=== PATIENT | male | born 1970 | race African-American/Black ===

== ENCOUNTER 2019-03-09 19:43 | Inpatient (IN) | payer MEDICAID, OTHER ==
[~2019-03-09] VITALS: Ht 182.9 cm; Wt 76.3 kg
[~2019-03-09 19:43] MED LIST: METF500T17 PO
[2019-03-09] MEDS ORDERED: LISI-167 PO (19:46)
--- NOTE | 2019-03-09 19:54 | NUR ---
PATIENT PRESENTS TO ED TODAY FOR DIZZINESS, UPPER ABD PAIN, AND N/V, DENIES DIARRHEA. EMT AT BEDSIDE FOR EKG, NADN, AWAITING MD ORDERS, CALL LIGHT WITHIN REACH.
--- NOTE | 2019-03-09 20:23 | NUR ---
REPORT TO KELECHI SCHMID.
--- NOTE | 2019-03-09 20:26 | NUR ---
report received from dirk short.
[2019-03-09] MEDS ORDERED: ONDANSETRON ODT 4 MG ONE (20:45)
[2019-03-09] MEDS ORDERED: MECLIZINE CHEWABLE 25 MG TAB ONE (20:45)
--- NOTE | 2019-03-09 20:48 | NUR ---
PT AMB TO BR WITH STEADY GAIT.
[2019-03-09 20:52] LABS: BASOPHILS # (AUTO) 0.03 x10^3/uL (0-0.1); BASOPHILS % (AUTO) 0 % (0-1); EOSINOPHILS # (AUTO) 0.17 x10^3/uL (0-0.4); EOSINOPHILS % (AUTO) 2 % (1-7); LYMPHOCYTES # (AUTO) 2.04 x10^3/uL (1-3.4); LYMPHOCYTES % (AUTO) 29 % (22-44); MD NO; MEAN CORPUSCULAR HEMOGLOBIN 29.9 pg (27.5-34.5); MEAN CORPUSCULAR HGB CONC 32.8 g/dL (33.2-36.2); MEAN CORPUSCULAR VOLUME 91.1 fL (81-97); MEAN PLATELET VOLUME 7.9 fL (7.4-10.4); MONOCYTES # (AUTO) 0.45 x10^3/uL (0.2-0.8); MONOCYTES % (AUTO) 6 % (2-9); NEUTROPHILS # (AUTO) 4.43 x10^3/uL (1.8-6.8); NEUTROPHILS % (AUTO) 62 % (42-75); PLATELET COUNT 305 x10^3/uL (130-400); RED BLOOD COUNT 4.38 x10^6/uL (4.38-5.82); RED CELL DISTRIBUTION WIDTH 15.1 % (9.4-14.8)
--- NOTE | 2019-03-09 20:52 | NUR ---
PT MEDICATED PER EMAR. PT TOLERATED WELL.
[2019-03-09] MEDS ORDERED: MECLIZINE CHEWABLE 25 MG TAB PO ONE (21:00)
[2019-03-09] MEDS ORDERED: ONDANSETRON ODT 4 MG PO ONE (21:00)
[2019-03-09 21:02] LABS: MICROSCOPIC AUTO
[2019-03-09 21:05] LABS: CULTURE INDICATED? NO
[2019-03-09 21:05] LABS: ALANINE AMINOTRANSFERASE 37 U/L (12-78); ALBUMIN 3.4 g/dL (3.4-5.0); ANION GAP 11 mmol/L (5-15); CALCIUM 8.5 mg/dL (8.5-10.1); CHLORIDE 105 mmol/L (98-107); CREATININE 0.72 mg/dL (0.7-1.3)
[2019-03-09 21:09] LABS: ALKALINE PHOSPHATASE 61 U/L (45-117); BILIRUBIN,TOTAL 0.2 mg/dL (0.2-1.0); TOTAL PROTEIN 7.2 g/dL (6.4-8.2); TROPONIN I 0.018 ng/mL (0.000-0.045)
--- NOTE | 2019-03-09 21:56 | NUR ---
THIS RN TRIED TO DC PT. PT STATES " I FEEL DZY STILL. CAN I STAY ON THE BED FOR 30 MIN?" EDMD AND [employer] ENGINEER NOTIFIED. PT IS STILL RESTING IN [facility]. PT'S AOX4. RESPS EVEN AND UNLABORED.
--- NOTE | 2019-03-09 22:21 | NUR ---
PT IS NOT READY FOR DC. PT STILL RESTING IN [facility]. RESPS EVEN AND UNLABORED. PT'S AOX4.
--- NOTE | 2019-03-09 22:49 | NUR ---
PT IS NOT READY YET. PT RESTING IN [facility]. PT'S AOX4. RESPS EVEN AND UNLABORED. BP/SPO2 MONITORS IN PLACE. CALL LIGHT WITHIN REACH. WARM BLANCKET PROVIDED.
--- NOTE | 2019-03-09 23:11 | NUR ---
PT HAS N/D STILL. EDMD NOTIFIED.
[2019-03-09] MEDS ORDERED: DIAZEPAM 5 MG TABLET PO ONE (23:29)
[2019-03-09] MEDS ORDERED: ACETAMINOPHEN 325 MG TABLET PO PRN (23:30)
[2019-03-09] MEDS ORDERED: ONDANSETRON 2MG/ML, 2ML IVPush PRN (23:30)
[2019-03-09] MEDS ORDERED: MECLIZINE CHEWABLE 25 MG TAB PO PRN (23:30)
[2019-03-09] MEDS ORDERED: DIAZEPAM 5 MG TABLET PO PRN (23:30)
[2019-03-09] MEDS: SODIUM CHLORIDE FLUSH 10ML SYR IVF SCH (23:30)
[2019-03-09] MEDS ORDERED: POLYETHYLENE GLYCOL 17 GM PACKET PO PRN (23:30)
[2019-03-09] MEDS ORDERED: BISACODYL 10 MG SUPP PR PRN (23:30)
[2019-03-09] MEDS ORDERED: DIAZEPAM 5 MG TABLET ONE (23:35)
--- NOTE | 2019-03-09 23:39 | NUR ---
pt medicated per emar. pt tolerated well. pt's aox4. resps even and unlabored.
--- NOTE | 2019-03-09 23:40 | NUR ---
medication ordered from pharmacy.
[2019-03-09] MEDS: metFORMIN 500 MG TABLET PO SCH (23:53)
--- NOTE | 2019-03-09 23:54 | NUR ---
PT MEDICATED PER EMAR. PT TOLERATED WELL.
[2019-03-09 23:58] LABS: HEMOGLOBIN A1C 12.9 % (4.2-6.3)
--- NOTE | 2019-03-10 00:25 | NUR ---
REPORT GIVEN TO BURT LORENZ. ALL QUESTIONS ANSWERED.
[2019-03-10 00:51] VITALS: BP 147/91
[2019-03-10 01:01] VITALS: BP 147/91
[2019-03-10 07:39] VITALS: BP 163/96
[2019-03-10] MEDS: metFORMIN 500 MG TABLET PO SCH (08:05)
[2019-03-10] MEDS: SODIUM CHLORIDE FLUSH 10ML SYR IVF SCH ×2 (08:05→20:38)
[2019-03-10] MEDS ORDERED: LISINOPRIL 20 MG TABLET PO SCH (09:00)
[2019-03-10] MEDS ORDERED: GADOBUTROL 7.5 MMOL/7.5 ML PFS ONE (11:48)
[2019-03-10 13:15] VITALS: BP 149/85
[2019-03-10] MEDS ORDERED: INSULIN GLARGINE 100 UNITS/ML, PEN SQ-INSULIN SCH (15:30)
[2019-03-10] MEDS ORDERED: hydrALAzine 20 MG/ML, 1ML IV PRN (16:00)
[2019-03-10] MEDS: METOPROLOL TARTRATE 25 MG TABLET PO SCH (16:34)
[2019-03-10] MEDS: SODIUM CHLORIDE 0.9% 1,000 ML IV SCH ×2 (16:35→22:46)
[2019-03-10] MEDS: INSULIN LISPRO 100 UNITS/ML, PEN SQ-INSULIN SCH ×2 (16:36→20:38)
[2019-03-10 19:16] VITALS: BP 121/74
[2019-03-10] MEDS: LISINOPRIL 20 MG TABLET PO SCH (20:38)
[2019-03-11 01:50] VITALS: BP 118/71
[2019-03-11 05:38] LABS: ANION GAP 6 mmol/L (5-15); CALCIUM 8.4 mg/dL (8.5-10.1); CHLORIDE 107 mmol/L (98-107)
[2019-03-11 05:42] LABS: CHOL/HDL RATIO 1.3; CHOLESTEROL, TOTAL 113 mg/dL (140-239); CREATININE 0.59 mg/dL (0.7-1.3); HDL CHOL % 78 % (26-37); HDL CHOLESTEROL (DIRECT) 88 mg/dL (40-60); LDL CHOLESTEROL,CALCULATED 16 mg/dL (54-169); LDL/HDL RATIO 0.2 (0.5-3.0); TRIGLYCERIDES 45 mg/dL (50-200); VLDL CHOLESTEROL 9 mg/dL (0-25)
[2019-03-11] MEDS: METOPROLOL TARTRATE 25 MG TABLET PO SCH ×2 (05:44→17:16)
[2019-03-11] MEDS: SODIUM CHLORIDE 0.9% 1,000 ML IV SCH ×3 (05:45→23:06)
[2019-03-11 06:26] VITALS: BP 148/92
[2019-03-11] MEDS: INSULIN LISPRO 100 UNITS/ML, PEN SQ-INSULIN SCH ×4 (07:00→20:16)
[2019-03-11] MEDS: SODIUM CHLORIDE FLUSH 10ML SYR IVF SCH ×2 (07:44→20:17)
[2019-03-11] MEDS: LISINOPRIL 20 MG TABLET PO SCH ×2 (07:44→20:17)
[2019-03-11] MEDS: metFORMIN 500 MG TABLET PO SCH ×2 (13:01→20:17)
[2019-03-11 14:11] VITALS: BP 130/80
[2019-03-11 16:11] VITALS: BP 137/80
[2019-03-11 18:39] VITALS: BP 123/79
[2019-03-11] MEDS ORDERED: INSULIN GLARGINE 100 UNITS/ML, PEN SQ-INSULIN SCH (21:00)
[2019-03-12 03:30] VITALS: BP 125/79
[2019-03-12] MEDS: METOPROLOL TARTRATE 25 MG TABLET PO SCH (05:52)
[2019-03-12] MEDS: SODIUM CHLORIDE 0.9% 1,000 ML IV SCH (06:11)
[2019-03-12 06:41] VITALS: BP 134/86
[2019-03-12] MEDS: INSULIN LISPRO 100 UNITS/ML, PEN SQ-INSULIN SCH ×2 (07:00→11:57)
[2019-03-12] MEDS: metFORMIN 500 MG TABLET PO SCH (07:28)
[2019-03-12] MEDS: SODIUM CHLORIDE FLUSH 10ML SYR IVF SCH (07:28)
[2019-03-12] MEDS: LISINOPRIL 20 MG TABLET PO SCH (07:28)
[2019-03-12] MEDS ORDERED: INSU100I34 SQ (14:21)
[2019-03-12] MEDS ORDERED: LISI-170 PO (14:21)
[2019-03-12] MEDS ORDERED: METF500T PO (14:21)
[2019-03-12] MEDS ORDERED: METO25TA35 PO (14:21)
[2019-03-12 14:33] VITALS: BP 130/82
== END 2019-03-12 15:38 | disposition home or self-care (01) | DRG 638 ==
LOC: ED 22:50 → EDIP 23:15 → 3NE 03-10 00:45
PROVIDERS: ADMIT Family Medicine; ATTEND Family Medicine
DX: E11.65 Type 2 diabetes mellitus with hyperglycemia (principal); E87.2 Acidosis; E86.0 Dehydration; H81.10 Benign paroxysmal vertigo, unspecified ear; I10 Essential (primary) hypertension; Z79.899 Other long term (current) drug therapy; Z83.3 Family history of diabetes mellitus
CPT/HCPCS: 36415; 70553; 80048; 80053; 80061; 81001; 82962; 83036; 83605; 83735; 84484; 85025; 93005; 99285; A9585; G0378; Q0162; J1815; J7030

== ENCOUNTER 2020-04-15 09:05 | Inpatient (IN) | payer BC, OTHER ==
[~2020-04-15] VITALS: Ht 182.9 cm; Wt 88.0 kg
[~2020-04-15 09:05] MED LIST changes: +INSU100I34 SQ; +LISI-167 PO; +LISI-170 PO; +METF500T PO; +METO25TA35 PO
--- NOTE | 2020-04-15 09:47 | NUR ---
WEB OPERATIONS LEAD: PT TO ROOM FROM LOBBY
[2020-04-15] MEDS ORDERED: SODIUM CHLORIDE 0.9% 1,000ML IVBOLUS ONE (10:00)
[2020-04-15] MEDS ORDERED: AMPICILLIN/SULBACTAM 3 GM in SODIUM CHLORIDE 0.9% 100 ML IV ONE (10:00)
[2020-04-15 10:21] LABS: MEAN CORPUSCULAR HEMOGLOBIN 32.1 pg (27.5-34.5); MEAN CORPUSCULAR HGB CONC 33.1 g/dL (33.2-36.2); MEAN CORPUSCULAR VOLUME 97.1 fL (81-97); MEAN PLATELET VOLUME 7.7 fL (7.4-10.4); PLATELET COUNT 394 x10^3/uL (130-400); RED BLOOD COUNT 3.98 x10^6/uL (4.38-5.82); RED CELL DISTRIBUTION WIDTH 12.3 % (9.4-14.8)
--- NOTE | 2020-04-15 10:21 | NUR ---
PT CAME IN CO OF RIGHT GREAT TOE PAIN FROM A NON HEALING WOUND. PT DENIES SEEING WOUND CLINIC. PT STATES HE IS DIABETIC AND HIS SUGAR WAS OVER 500 THIS MORNING. THE WOUND ON HIS TOE HAS A FOUL ODOR AND HIS BIG TOE NAIL HAS FALLEN OFF. LABS DRAWN. PT CONNECTED TO MONITORING EQUIPMENT. IV FLUIDS INFUSING
[2020-04-15 10:34] LABS: ALBUMIN 2.8 g/dL (3.4-5.0); ANION GAP 7 mmol/L (5-15); CALCIUM 8.7 mg/dL (8.5-10.1); CHLORIDE 98 mmol/L (98-107); CREATININE 0.81 mg/dL (0.7-1.3)
--- NOTE | 2020-04-15 10:37 | NUR ---
PT RESTING IN [facility]. WATCHING TV. VSS. NAD.
[2020-04-15 10:46] LABS: BASOPHILS # (AUTO) 0.03 x10^3/uL (0-0.1); BASOPHILS % (AUTO) 0 % (0-1); EOSINOPHILS # (AUTO) 0.01 x10^3/uL (0-0.4); EOSINOPHILS % (AUTO) 0 % (1-7); LYMPHOCYTES # (AUTO) 1.31 x10^3/uL (1-3.4); LYMPHOCYTES % (AUTO) 10 % (22-44); MD SCAN; MONOCYTES # (AUTO) 0.48 x10^3/uL (0.2-0.8); MONOCYTES % (AUTO) 4 % (2-9); NEUTROPHILS % (AUTO) 86 % (42-75)
[2020-04-15 11:20] LABS: ACETONE, SERUM Negative (Negative)
[2020-04-15] MEDS ORDERED: POTASSIUM CHLORIDE 20 MEQ TAB.ER.PRT ONE (11:29)
[2020-04-15] MEDS ORDERED: NS + 40MEQ KCL 1,000 ML IV ONE (11:29)
[2020-04-15] MEDS ORDERED: POTASSIUM CHLORIDE 20 MEQ TAB.ER.PRT PO ONE (11:30)
[2020-04-15] MEDS ORDERED: NS + 40MEQ KCL 1,000 ML IV SCH (11:30)
[2020-04-15] MEDS ORDERED: VANCOMYCIN PER PHARMACY MC PRN ×2 (11:30→13:00)
--- NOTE | 2020-04-15 11:39 | NUR ---
PT EDUCATED ON PLAN OF CARE.
--- NOTE | 2020-04-15 11:45 | NUR ---
REPORT FROM KELECHI JIMENEZ. PT CARE RESPONSIBILITIES ASSUMED.
[2020-04-15] MEDS ORDERED: VANCOMYCIN 1,700 MG in SODIUM CHLORIDE 0.9% 250 ML IV ONE (12:00)
[2020-04-15 12:05] LABS: HCT (SEDRATE) 36.3 % (39.2-51.8)
[2020-04-15] MEDS ORDERED: POLYETHYLENE GLYCOL 17 GM PACKET PO PRN (12:30)
[2020-04-15] MEDS ORDERED: hydrALAzine 20 MG/ML, 1ML IVPush PRN (12:30)
[2020-04-15 12:33] VITALS: BP 160/99
[2020-04-15] MEDS ORDERED: MAGNESIUM SULFATE PMX 4GM/100M 100 ML IV ONE (13:00)
[2020-04-15] MEDS ORDERED: PHARMACOKINETIC CONSULTATION MC ONE (13:30)
[2020-04-15] MEDS ORDERED: PHARMACOKINETIC MONITORING MC PRN (13:30)
[2020-04-15] MEDS: AMPICILLIN/SULBACTAM 3 GM in SODIUM CHLORIDE 0.9% 100 ML IV SCH ×2 (14:23→21:37)
[2020-04-15] MEDS: NS + 20MEQ KCL 1,000 ML IV SCH (14:24)
[2020-04-15] MEDS: INSULIN LISPRO 100 UNITS/ML, PEN SQ-INSULIN SCH ×2 (15:50→21:00)
[2020-04-15 16:09] VITALS: BP 107/74
[2020-04-15] MEDS ORDERED: CHLORHEXIDINE 15 ML UDC ONE (17:33)
[2020-04-15 18:09] LABS: ANION GAP 7 mmol/L (5-15); CALCIUM 8.4 mg/dL (8.5-10.1); CHLORIDE 101 mmol/L (98-107)
[2020-04-15 18:10] LABS: CREATININE 0.64 mg/dL (0.7-1.3)
[2020-04-15] MEDS ORDERED: BUPIVACAINE/PF 0.5% ONE (18:35)
[2020-04-15 18:49] VITALS: BP 130/75
[2020-04-15] MEDS ORDERED: MIDAZOLAM 1 MG/ML, 2ML ONE (19:56)
[2020-04-15] MEDS ORDERED: ONDANSETRON 2MG/ML, 2ML ONE (19:56)
[2020-04-15] MEDS ORDERED: ROCURONIUM 10MG/ML,5ML ONE (19:56)
[2020-04-15] MEDS ORDERED: SUCCINYLCHOLINE 20 MG/ML, 10ML ONE (19:56)
[2020-04-15] MEDS ORDERED: SUGAMMADEX 200 MG/2 ML IVPush ONE (19:56)
[2020-04-15] MEDS ORDERED: PROPOFOL 10 MG/ML, 20ML ONE (19:56)
[2020-04-15] MEDS ORDERED: CEFAZOLIN 1,000 MG ONE (19:56)
[2020-04-15] MEDS ORDERED: FENTANYL PF 100 MCG/2ML IV PRN (20:30)
[2020-04-15] MEDS ORDERED: OXYcodone 5 MG/5 ML ORAL.SOL UDC PO PRN (20:30)
[2020-04-15] MEDS ORDERED: HYDROmorphone 1 MG/ML, 1ML INJ IV PRN (20:30)
[2020-04-15] MEDS ORDERED: MEPERIDINE/PF 25MG/0.5ML IVPush PRN (20:30)
[2020-04-15] MEDS ORDERED: ALBUTEROL SULFATE 2.5 MG/3 ML NPPB PRN (20:30)
[2020-04-15] MEDS ORDERED: METOCLOPRAMIDE 5 MG/ML, 2ML IV PRN (20:30)
[2020-04-15] MEDS ORDERED: hydrALAzine 20 MG/ML, 1ML IV PRN (20:30)
[2020-04-15] MEDS ORDERED: DIAZEPAM 5 MG/ML, 2ML IV PRN ×2 (20:30)
[2020-04-15] MEDS ORDERED: KETOROLAC 30 MG/1 ML IV PRN (20:30)
[2020-04-15] MEDS ORDERED: PROMETHAZINE 25 MG/ML, 1ML IV PRN (20:30)
[2020-04-15] MEDS ORDERED: LABETALOL 5MG/ML, 20ML IV PRN (20:30)
[2020-04-15] MEDS ORDERED: ONDANSETRON 2MG/ML, 2ML IVPush PRN (20:30)
[2020-04-15] MEDS ORDERED: INSULIN GLARGINE 100 UNITS/ML, PEN SQ-INSULIN SCH (21:00)
[2020-04-15] MEDS: metFORMIN 500 MG TABLET PO SCH (21:37)
[2020-04-15] MEDS: LISINOPRIL 20 MG TABLET PO SCH (21:37)
[2020-04-16] MEDS: VANCOMYCIN 1,300 MG in SODIUM CHLORIDE 0.9% 250 ML IV SCH ×3 (00:05→23:35)
[2020-04-16 01:02] VITALS: BP 135/79
[2020-04-16] MEDS: AMPICILLIN/SULBACTAM 3 GM in SODIUM CHLORIDE 0.9% 100 ML IV SCH ×4 (01:52→19:56)
[2020-04-16] MEDS: NS + 20MEQ KCL 1,000 ML IV SCH ×2 (04:09→17:57)
[2020-04-16] MEDS ORDERED: POTASSIUM CHLORIDE 20 MEQ TAB.ER.PRT PO ONE (06:00)
[2020-04-16 06:43] LABS: BASOPHILS # (AUTO) 0.02 x10^3/uL (0-0.1); BASOPHILS % (AUTO) 0 % (0-1); EOSINOPHILS # (AUTO) 0.04 x10^3/uL (0-0.4); EOSINOPHILS % (AUTO) 1 % (1-7); LYMPHOCYTES # (AUTO) 1.21 x10^3/uL (1-3.4); LYMPHOCYTES % (AUTO) 19 % (22-44); MD NO; MEAN CORPUSCULAR HGB CONC 33.4 g/dL (33.2-36.2); MEAN CORPUSCULAR VOLUME 95.8 fL (81-97); MEAN PLATELET VOLUME 7.5 fL (7.4-10.4); MONOCYTES # (AUTO) 0.61 x10^3/uL (0.2-0.8); MONOCYTES % (AUTO) 9 % (2-9); NEUTROPHILS # (AUTO) 4.63 x10^3/uL (1.8-6.8); NEUTROPHILS % (AUTO) 71 % (42-75); PLATELET COUNT 330 x10^3/uL (130-400); RED BLOOD COUNT 3.65 x10^6/uL (4.38-5.82); RED CELL DISTRIBUTION WIDTH 12.1 % (9.4-14.8)
[2020-04-16 07:14] LABS: ANION GAP 5 mmol/L (5-15); CALCIUM 7.6 mg/dL (8.5-10.1); CHLORIDE 103 mmol/L (98-107)
[2020-04-16 07:17] LABS: CREATININE 0.53 mg/dL (0.7-1.3)
[2020-04-16 07:46] VITALS: BP 127/83
[2020-04-16] MEDS: INSULIN LISPRO 100 UNITS/ML, PEN SQ-INSULIN SCH ×4 (08:04→21:00)
[2020-04-16] MEDS: LISINOPRIL 20 MG TABLET PO SCH ×2 (08:05→21:00)
[2020-04-16] MEDS: metFORMIN 500 MG TABLET PO SCH ×2 (08:05→21:40)
[2020-04-16] MEDS: MAGNESIUM CHLORIDE 64 MG TABLET.DR PO SCH ×2 (08:05→21:00)
[2020-04-16 13:39] VITALS: BP 137/85
[2020-04-16] MEDS ORDERED: MAGNESIUM SULFATE IV ONE (16:00)
[2020-04-16] MEDS ORDERED: SODIUM CHLORIDE 0.9% IV ONE (16:00)
[2020-04-16 19:35] VITALS: BP 134/80
[2020-04-16] MEDS ORDERED: INSULIN GLARGINE 100 UNITS/ML, PEN SQ-INSULIN SCH (21:00)
[2020-04-16] MEDS ORDERED: LISINOPRIL 10 MG TABLET ONE (21:38)
[2020-04-17 01:40] VITALS: BP 127/72
[2020-04-17] MEDS: AMPICILLIN/SULBACTAM 3 GM in SODIUM CHLORIDE 0.9% 100 ML IV SCH ×4 (01:48→19:39)
[2020-04-17 05:35] LABS: CHLORIDE 107 mmol/L (98-107)
[2020-04-17 05:37] LABS: ALBUMIN 2.1 g/dL (3.4-5.0); ANION GAP 3 mmol/L (5-15); CALCIUM 7.8 mg/dL (8.5-10.1)
[2020-04-17 05:52] LABS: BASOPHILS # (AUTO) 0.04 x10^3/uL (0-0.1); BASOPHILS % (AUTO) 0 % (0-1); EOSINOPHILS # (AUTO) 0.04 x10^3/uL (0-0.4); EOSINOPHILS % (AUTO) 0 % (1-7); LYMPHOCYTES # (AUTO) 1.96 x10^3/uL (1-3.4); LYMPHOCYTES % (AUTO) 20 % (22-44); MD NO; MEAN CORPUSCULAR HEMOGLOBIN 32.2 pg (27.5-34.5); MEAN CORPUSCULAR HGB CONC 33.1 g/dL (33.2-36.2); MEAN CORPUSCULAR VOLUME 97.4 fL (81-97); MEAN PLATELET VOLUME 7.7 fL (7.4-10.4); MONOCYTES # (AUTO) 1.31 x10^3/uL (0.2-0.8); MONOCYTES % (AUTO) 13 % (2-9); NEUTROPHILS # (AUTO) 6.49 x10^3/uL (1.8-6.8); NEUTROPHILS % (AUTO) 66 % (42-75); PLATELET COUNT 358 x10^3/uL (130-400); RED BLOOD COUNT 3.67 x10^6/uL (4.38-5.82); RED CELL DISTRIBUTION WIDTH 12.5 % (9.4-14.8)
[2020-04-17] MEDS ORDERED: POTASSIUM CHLORIDE 20 MEQ TAB.ER.PRT PO ONE (06:00)
[2020-04-17] MEDS: INSULIN LISPRO 100 UNITS/ML, PEN SQ-INSULIN SCH ×4 (07:00→19:55)
[2020-04-17] MEDS ORDERED: LISINOPRIL 10 MG TABLET ONE (07:36)
[2020-04-17] MEDS: metFORMIN 500 MG TABLET PO SCH ×2 (08:07→20:29)
[2020-04-17] MEDS: LISINOPRIL 20 MG TABLET PO SCH ×2 (08:07→20:29)
[2020-04-17] MEDS: POTASSIUM CHLORIDE 20 MEQ TAB.ER.PRT PO SCH ×2 (08:30→16:54)
[2020-04-17 09:01] VITALS: BP 138/90
[2020-04-17] MEDS: VANCOMYCIN 1,300 MG in SODIUM CHLORIDE 0.9% 250 ML IV SCH ×2 (11:27→23:36)
[2020-04-17] MEDS ORDERED: LINA5TAB PO (13:01)
[2020-04-17] MEDS: LINAGLIPTIN 5 MG TAB PO SCH (13:40)
[2020-04-17 14:30] VITALS: BP 137/85
[2020-04-17 18:59] VITALS: BP 152/91
[2020-04-17 20:28] VITALS: BP 151/92
[2020-04-18 01:23] VITALS: BP 140/78
[2020-04-18] MEDS: AMPICILLIN/SULBACTAM 3 GM in SODIUM CHLORIDE 0.9% 100 ML IV SCH (01:58)
[2020-04-18] MEDS: INSULIN LISPRO 100 UNITS/ML, PEN SQ-INSULIN SCH ×4 (07:00→16:21)
[2020-04-18 08:34] LABS: ANION GAP 4 mmol/L (5-15); CALCIUM 8.7 mg/dL (8.5-10.1); CHLORIDE 106 mmol/L (98-107); CREATININE 0.53 mg/dL (0.7-1.3)
[2020-04-18] MEDS: LISINOPRIL 20 MG TABLET PO SCH ×2 (09:00→23:58)
[2020-04-18 09:05] VITALS: BP 149/93
[2020-04-18] MEDS ORDERED: LISINOPRIL 10 MG TABLET ONE ×2 (10:08→22:44)
[2020-04-18] MEDS: LINEZOLID 600 MG TABLET PO SCH ×2 (10:11→23:58)
[2020-04-18] MEDS: SULFAMETH./TRIMETHOPRIM DS 800MG/160MG TABLET PO SCH ×2 (10:11→23:58)
[2020-04-18] MEDS: LINAGLIPTIN 5 MG TAB PO SCH (10:11)
[2020-04-18] MEDS: metFORMIN 500 MG TABLET PO SCH ×2 (10:12→23:58)
[2020-04-18] MEDS: ACETAMINOPHEN 325 MG TABLET PO PRN (10:44)
[2020-04-18] MEDS ORDERED: VANCOMYCIN 1,800 MG in SODIUM CHLORIDE 0.9% 250 ML IV SCH (11:30)
[2020-04-18 14:05] VITALS: BP 144/80
[2020-04-18 19:27] VITALS: BP 157/94
[2020-04-18 20:20] VITALS: BP 147/103
[2020-04-19] MEDS: INSULIN LISPRO 100 UNITS/ML, PEN SQ-INSULIN SCH ×3 (00:20→10:55)
[2020-04-19 02:26] VITALS: BP 162/92
[2020-04-19 06:43] LABS: ANION GAP 4 mmol/L (5-15); CALCIUM 8.6 mg/dL (8.5-10.1); CHLORIDE 106 mmol/L (98-107)
[2020-04-19] MEDS: ACETAMINOPHEN 325 MG TABLET PO PRN (07:00)
[2020-04-19] MEDS ORDERED: LISINOPRIL 10 MG TABLET ONE (08:43)
[2020-04-19] MEDS: metFORMIN 500 MG TABLET PO SCH (08:45)
[2020-04-19] MEDS: LISINOPRIL 20 MG TABLET PO SCH (08:45)
[2020-04-19] MEDS: SULFAMETH./TRIMETHOPRIM DS 800MG/160MG TABLET PO SCH (08:46)
[2020-04-19] MEDS: LINEZOLID 600 MG TABLET PO SCH (08:46)
[2020-04-19] MEDS: LINAGLIPTIN 5 MG TAB PO SCH (08:46)
[2020-04-19 08:59] VITALS: BP 157/97
[2020-04-19] MEDS ORDERED: MAGNESIUM CHLORIDE 64 MG TABLET.DR PO SCH (09:00)
[2020-04-19] MEDS ORDERED: HYDROcodone/APAP 5/325 TABLET PO PRN (10:00)
[2020-04-19] MEDS ORDERED: ENOXAPARIN 40 MG/0.4 ML SQ SCH (10:00)
[2020-04-19] MEDS ORDERED: LINE600T15 PO (10:53)
[2020-04-19] MEDS ORDERED: Sulfameth./Trimethoprim Ds PO (10:53)
[2020-04-19 13:31] VITALS: BP 155/95
== END 2020-04-19 15:06 | disposition home or self-care (01) | DRG 617 ==
LOC: ED 10:04 → EDIP 11:29 → 4EST 12:25 → 4WST 04-17 20:59 → 4NE 04-18 20:04 → DCLOUNGE 04-19 14:42
PROVIDERS: ADMIT Family Medicine; ATTEND Family Medicine
PROC: 0Y6P0Z0 Detachment at Right 1st Toe, Complete, Open Approach (ICD-10-PCS; principal; 2020-04-15 16:30)
DX: E11.621 Type 2 diabetes mellitus with foot ulcer (principal); E46 Unspecified protein-calorie malnutrition; M00.9 Pyogenic arthritis, unspecified; M86.8X7 Other osteomyelitis, ankle and foot; E11.649 Type 2 diabetes mellitus with hypoglycemia without coma; D64.9 Anemia, unspecified; E11.69 Type 2 diabetes mellitus with other specified complication; E11.65 Type 2 diabetes mellitus with hyperglycemia; E83.42 Hypomagnesemia; E87.6 Hypokalemia; S99.921A Unspecified injury of right foot, initial encounter; W22.8XXA Striking against or struck by other objects, initial encounter; Z20.828 Contact with and (suspected) exposure to other viral communicable diseases; F17.200 Nicotine dependence, unspecified, uncomplicated; I10 Essential (primary) hypertension; L03.039 Cellulitis of unspecified toe; L97.519 Non-pressure chronic ulcer of other part of right foot with unspecified severity; L97.529 Non-pressure chronic ulcer of other part of left foot with unspecified severity; Z68.26 Body mass index [BMI] 26.0-26.9, adult; Z79.84 Long term (current) use of oral hypoglycemic drugs; Z79.899 Other long term (current) drug therapy; Z82.0 Family history of epilepsy and other diseases of the nervous system; Z83.3 Family history of diabetes mellitus; Y99.0 Civilian activity done for income or pay
CPT/HCPCS: 36415; 73630; 96361; 96365; 96375; 99285; S0020; 80048; 80202; 82010; 82040; 82800; 82962; 83036; 83735; 84132; 85025; 85651; 87040; 87070; 87075; 87077; 87147; 87186; 87205; 87635; 93005; G0378; J0295; J0690; J1650; J2250; J2405; J2704; J3370; J3475; J3480; J0330; J1815; J7030; J7040; J7050

== ENCOUNTER 2020-07-06 20:10 | Emergency (ER) | payer BC, OTHER ==
[~2020-07-06] VITALS: Ht 182.9 cm; Wt 69.9 kg
[~2020-07-06 20:10] MED LIST changes: +LINA5TAB PO; +LINE600T15 PO; +Sulfameth./Trimethoprim Ds PO
--- NOTE | 2020-07-06 20:30 | NUR ---
50 year old female to ed for lower back pain, nausea, and htn. She also states she feels similar to how she feels before she has a seizure. Addendum: 07/06/20 at 2212 by [id number] 50 year old male to ED for dizziness and feeling fatigued. He denies chest pain, sob, nausea, or vomiting.
[2020-07-06] MEDS ORDERED: MECLIZINE CHEWABLE 25 MG TAB PO ONE (21:00)
[2020-07-06 21:17] LABS: BASOPHILS # (AUTO) 0.04 x10^3/uL (0-0.1); BASOPHILS % (AUTO) 1 % (0-1); EOSINOPHILS # (AUTO) 0.11 x10^3/uL (0-0.4); EOSINOPHILS % (AUTO) 2 % (1-7); LYMPHOCYTES # (AUTO) 3.15 x10^3/uL (1-3.4); LYMPHOCYTES % (AUTO) 54 % (22-44); MD NO; MEAN CORPUSCULAR HEMOGLOBIN 31.6 pg (27.5-34.5); MEAN CORPUSCULAR HGB CONC 33.2 g/dL (33.2-36.2); MONOCYTES # (AUTO) 0.32 x10^3/uL (0.2-0.8); MONOCYTES % (AUTO) 6 % (2-9); NEUTROPHILS % (AUTO) 38 % (42-75); PLATELET COUNT 350 x10^3/uL (130-400); RED BLOOD COUNT 3.47 x10^6/uL (4.38-5.82); RED CELL DISTRIBUTION WIDTH 14.8 % (9.4-14.8)
[2020-07-06] MEDS ORDERED: MECLIZINE CHEWABLE 25 MG TAB ONE (21:23)
[2020-07-06 21:29] LABS: ALANINE AMINOTRANSFERASE 105 U/L (12-78); ALBUMIN 3.5 g/dL (3.4-5.0); ANION GAP 9 mmol/L (5-15); CALCIUM 8.5 mg/dL (8.5-10.1); CHLORIDE 107 mmol/L (98-107); CREATININE 0.95 mg/dL (0.7-1.3)
[2020-07-06 21:33] LABS: ALKALINE PHOSPHATASE 147 U/L (45-117); BILIRUBIN,TOTAL 0.3 mg/dL (0.2-1.0); TOTAL PROTEIN 6.9 g/dL (6.4-8.2); TROPONIN I 0.016 ng/mL (0.000-0.045)
[2020-07-06] MEDS ORDERED: LISINOPRIL 20 MG TABLET ONE (22:28)
[2020-07-06] MEDS ORDERED: metFORMIN 500 MG TABLET ONE (22:28)
[2020-07-06] MEDS ORDERED: metFORMIN 500 MG TABLET PO ONE (22:30)
[2020-07-06] MEDS ORDERED: LISINOPRIL 20 MG TABLET PO ONE (22:30)
[2020-07-06 22:31] VITALS: BP 153/96
== END 2020-07-06 23:05 | disposition home or self-care (01) ==
LOC: ED 20:38
DX: R53.1 Weakness (principal); Z76.0 Encounter for issue of repeat prescription; Z72.9 Problem related to lifestyle, unspecified; I10 Essential (primary) hypertension; E11.9 Type 2 diabetes mellitus without complications
CPT/HCPCS: 36415; 71045; 80053; 82962; 84484; 85025; 93005; 99285

== ENCOUNTER 2020-10-23 08:16 | Inpatient (IN) | payer MEDICAID, OTHER ==
[2020-10-21 14:45] VITALS: BP 123/96
[~2020-10-23] VITALS: Ht 182.9 cm; Wt 81.0 kg
--- NOTE | 2020-10-23 08:43 | NUR ---
BIB EMS, PT WITH C/O INCREASING SOB/BLE/BUE SWELLING OVER THE LAST 5 DAYS NO HX CHF. PT ALSO WITH WEEPING WOUNDS BLE, DM ULCER TO L GREAT TOE NOTED. PT DENIES CP. PT ARRIVES WITH FEVER 102.5. PT WITH INCREASED WOB RR 28 RA 95%. HAS DRY COUGH, PT STATES THIS IS DUE TO INCREASE IN [place] 2 WEEKS AGO, PRESCRIBED FOR HTN. DENIES SICK CONTACTS. PT WITH 4+PITTING EDEMA BLE, 2+ BUE EDEMA, EMS WITH MULTIPLE ATTEMPTS AT PIV ACCESS INCLUDING EJ UNSUCCESSFUL. ERMD IN TO EVAL PT, EKG COMPLETED. PIV ACCESS X1 INITIATED. LAB IN TO DRAW PT, DISCUSSED WITH ERMD PT MEETING SEPSIS CRITERIA, HOLD ON FLUIDS AT THIS TIME D/T FLUID OVERLOAD, PT BP 132/81
[2020-10-23] MEDS ORDERED: ACETAMINOPHEN 500 MG TABLET ONE (08:55)
[2020-10-23] MEDS ORDERED: ACETAMINOPHEN 500 MG TABLET PO ONE (09:00)
[2020-10-23] MEDS ORDERED: SODIUM CHLORIDE 0.9% 1,000 ML IV ONE (09:00)
--- NOTE | 2020-10-23 09:40 | NUR ---
DELAY IN CARE: LAB ATTEMPT X3 NOW D/T DIFFICULT STICK, BC NOW OBTAINED
--- NOTE | 2020-10-23 09:44 | NUR ---
PINK SHEET BEGAN, AWAITING LABS TO COMPLETE.
[2020-10-23 09:56] LABS: BASOPHILS % (AUTO) 1 % (0-1); EOSINOPHILS % (AUTO) 0 % (1-7); LYMPHOCYTES % (AUTO) 8 % (22-44); MEAN CORPUSCULAR HEMOGLOBIN 31.5 pg (27.5-34.5); MEAN PLATELET VOLUME 8.7 fL (7.4-10.4); MONOCYTES % (AUTO) 5 % (2-9); NEUTROPHILS % (AUTO) 87 % (42-75); PLATELET COUNT 240 x10^3/uL (130-400); RED BLOOD COUNT 4.05 x10^6/uL (4.38-5.82); RED CELL DISTRIBUTION WIDTH 13.6 % (9.4-14.8)
[2020-10-23 09:57] LABS: MD NO
[2020-10-23] MEDS ORDERED: CEFTRIAXONE PMX 1GM/50ML 50 ML IV ONE (10:00)
[2020-10-23] MEDS ORDERED: VANCOMYCIN 2,100 MG in SODIUM CHLORIDE 0.9% 500 ML IV ONE (10:00)
[2020-10-23] MEDS ORDERED: VANCOMYCIN PER PHARMACY MC ONE (10:00)
[2020-10-23 10:01] LABS: ALANINE AMINOTRANSFERASE 16 U/L (12-78); ALBUMIN 2.2 g/dL (3.4-5.0); CALCIUM 7.1 mg/dL (8.5-10.1); CREATININE 1.28 mg/dL (0.7-1.3)
[2020-10-23 10:05] LABS: ALKALINE PHOSPHATASE 87 U/L (45-117); BILIRUBIN,TOTAL 0.4 mg/dL (0.2-1.0); TOTAL PROTEIN 6.3 g/dL (6.4-8.2); TROPONIN I 0.085 ng/mL (0.000-0.045)
[2020-10-23 10:15] LABS: ANION GAP 13 mmol/L (5-15); CHLORIDE 110 mmol/L (98-107)
--- NOTE | 2020-10-23 10:22 | NUR ---
REPORT RECIVED. PT IN BED NO DISTRESS
[2020-10-23] MEDS ORDERED: CEFTRIAXONE PMX 1GM/50ML 50 ML ONE (10:27)
[2020-10-23] MEDS ORDERED: POTASSIUM CHLORIDE 20 MEQ TAB.ER.PRT ONE (10:28)
[2020-10-23] MEDS ORDERED: POTASSIUM CHLORIDE 20 MEQ TAB.ER.PRT PO ONE (10:30)
[2020-10-23] MEDS ORDERED: POTASSIUM CHLORIDE 40 MEQ in SODIUM CHLORIDE 0.9% 500 ML IV ONE ×2 (10:30→19:00)
--- NOTE | 2020-10-23 10:49 | NUR ---
PRECEPTOR NOTE: PER MD TO CONTINUE 250 ML/HR INFUSION OF NS AND WITHOLD LITER BOLUSES DUE TO FLUID OVERLOAD. MD AT BEDSIDE WITH US. MD STATES BEDSIDE US SHOW SYSTOLIC HEART FAILURE.
--- NOTE | 2020-10-23 10:51 | NUR ---
ONLY 1 IV DUE TO POOR ACCESS. ADMINE ROCEPIN, NS THEN VANCO, ORAL POT ADMIN, IV POT SENT BACK TO PHARM.
--- NOTE | 2020-10-23 11:23 | NUR ---
PT IN BED, VSS, VANCO RUNNING AT 250 ML/HR
[2020-10-23] MEDS ORDERED: PHENYLEPHRINE 10 MG/ML ONE (11:25)
[2020-10-23] MEDS ORDERED: EPHEDRINE 50 MG/ML, 1ML ONE (11:25)
[2020-10-23] MEDS ORDERED: ALBUTEROL HFA 90 MCG/SPRAY ONE (11:25)
--- NOTE | 2020-10-23 11:59 | NUR ---
PT STOOD AT SIDE OF BED, STILL UNABLE TO URINATE
--- NOTE | 2020-10-23 12:59 | NUR ---
PT UP TO BSC, PLACED ON HOSPITAL BED, NO DISTRESS,
--- NOTE | 2020-10-23 13:18 | NUR ---
US DONE AT BEDSIDE
[2020-10-23] MEDS ORDERED: HYDROcodone/APAP 5/325 TABLET ONE (13:34)
[2020-10-23] MEDS ORDERED: ONDANSETRON 2MG/ML, 2ML IVPush PRN ×2 (14:00→17:00)
[2020-10-23] MEDS ORDERED: MAGNESIUM SULFATE PMX 4GM/100M 100 ML IVPB ONE (14:00)
[2020-10-23] MEDS ORDERED: ONDANSETRON ODT 4 MG PO PRN (14:00)
[2020-10-23] MEDS ORDERED: MORPHINE SULFATE 4 MG/ML, 1ML IVPush PRN (14:00)
[2020-10-23] MEDS ORDERED: TRAZODONE 50MG TABLET PO PRN (14:00)
[2020-10-23] MEDS ORDERED: hydrALAzine 20 MG/ML, 1ML IVPush PRN (14:00)
[2020-10-23] MEDS ORDERED: VANCOMYCIN PER PHARMACY MC PRN (14:30)
[2020-10-23] MEDS ORDERED: DEXTROSE 50%, 50ML SYRINGE IVPush PRN (14:30)
[2020-10-23] MEDS ORDERED: GLUCAGON 1 MG IM PRN (14:30)
[2020-10-23] MEDS ORDERED: CEFTRIAXONE PMX 1GM/50ML 50 ML IV SCH (14:30)
[2020-10-23] MEDS ORDERED: DEXTROSE 4 GM TAB.CHEW PO PRN (14:30)
[2020-10-23 14:42] LABS: MICROSCOPIC AUTO
[2020-10-23] MEDS ORDERED: PHARMACOKINETIC MONITORING MC PRN (15:30)
[2020-10-23] MEDS ORDERED: VANCOMYCIN 2,300 MG in SODIUM CHLORIDE 0.9% 500 ML IV ONE (15:30)
[2020-10-23] MEDS ORDERED: PHARMACOKINETIC CONSULTATION MC ONE (15:30)
[2020-10-23] MEDS: INSULIN LISPRO 100 UNITS/ML, PEN SQ-INSULIN SCH ×2 (16:00→21:00)
[2020-10-23] MEDS ORDERED: LABETALOL 5MG/ML, 20ML IV PRN (17:00)
[2020-10-23] MEDS ORDERED: PROMETHAZINE 25 MG/ML, 1ML IVPush PRN (17:00)
[2020-10-23] MEDS ORDERED: HYDROmorphone 1 MG/ML, 1ML INJ IVPush PRN (17:00)
[2020-10-23] MEDS ORDERED: ACETAMINOPHEN 325 MG TABLET PO PRN (17:00)
[2020-10-23] MEDS ORDERED: EPHEDRINE 50 MG/ML, 1ML IVPush PRN (17:00)
[2020-10-23] MEDS ORDERED: POTASSIUM CHLORIDE 20 MEQ TAB.ER.PRT PO SCH (17:00)
[2020-10-23] MEDS ORDERED: hydrALAzine 20 MG/ML, 1ML IV PRN (17:00)
[2020-10-23] MEDS ORDERED: OXYcodone 5 MG/5 ML ORAL.SOL UDC PO PRN (17:00)
[2020-10-23] MEDS ORDERED: MIDAZOLAM 1 MG/ML, 2ML ONE ×2 (18:48→19:54)
[2020-10-23] MEDS ORDERED: FENTANYL PF 100 MCG/2ML ONE (18:48)
[2020-10-23] MEDS ORDERED: BUPIVACAINE/PF 0.5% ONE (18:51)
[2020-10-23] MEDS ORDERED: DEXAMETHASONE 4 MG/ML, 5ML ONE (19:01)
[2020-10-23] MEDS ORDERED: ONDANSETRON 2MG/ML, 2ML ONE (19:05)
[2020-10-23] MEDS ORDERED: PROPOFOL 10 MG/ML, 20ML ONE (19:05)
[2020-10-23] MEDS ORDERED: SUCCINYLCHOLINE 20 MG/ML, 10ML ONE (19:05)
[2020-10-23] MEDS ORDERED: BUPIVACAINE/PF 0.5% INFIL ONE (19:07)
[2020-10-23] MEDS ORDERED: SODIUM BICARBONATE 1 MEQ/ML, 50ML VIAL ONE (19:56)
[2020-10-23] MEDS ORDERED: ROCURONIUM 10MG/ML,5ML ONE (19:57)
[2020-10-23] MEDS: SODIUM CHLORIDE FLUSH 10ML SYR IVF SCH (21:00)
[2020-10-23] MEDS ORDERED: PROPOFOL 100 ML IV ONE (21:32)
[2020-10-23] MEDS: FENTANYL PF 100 MCG/2ML IV PRN (21:55)
[2020-10-23] MEDS: PROPOFOL 100 ML IV PRN (21:56)
[2020-10-23] MEDS ORDERED: VANCOMYCIN 1,900 MG in SODIUM CHLORIDE 0.9% 250 ML IV SCH (22:00)
[2020-10-23] MEDS ORDERED: SODIUM CHLORIDE 0.9% 1,000ML IVBOLUS ONE (22:30)
[2020-10-23] MEDS ORDERED: NOREPINEPHRINE 8 MG in SODIUM CHLORIDE 0.9% 242 ML IV PRN (23:00)
[2020-10-24] MEDS: FENTANYL PF 100 MCG/2ML IV PRN ×3 (00:01→05:29)
[2020-10-24] MEDS: PROPOFOL 100 ML IV PRN ×2 (02:10→05:42)
[2020-10-24 04:26] LABS: BASOPHILS % (AUTO) 0 % (0-1); EOSINOPHILS % (AUTO) 0 % (1-7); LYMPHOCYTES % (AUTO) 6 % (22-44); MEAN CORPUSCULAR HEMOGLOBIN 31.2 pg (27.5-34.5); MEAN CORPUSCULAR HGB CONC 32.4 g/dL (33.2-36.2); MEAN PLATELET VOLUME 8.3 fL (7.4-10.4); MONOCYTES % (AUTO) 2 % (2-9); NEUTROPHILS % (AUTO) 92 % (42-75); PLATELET COUNT 219 x10^3/uL (130-400); RED BLOOD COUNT 3.94 x10^6/uL (4.38-5.82); RED CELL DISTRIBUTION WIDTH 13.8 % (9.4-14.8)
[2020-10-24 04:27] LABS: MD NO
[2020-10-24 04:35] LABS: ANION GAP 10 mmol/L (5-15); CALCIUM 6.8 mg/dL (8.5-10.1); CHLORIDE 111 mmol/L (98-107); CREATININE 1.46 mg/dL (0.7-1.3)
[2020-10-24] MEDS ORDERED: VANCOMYCIN 1,900 MG in SODIUM CHLORIDE 0.9% 250 ML IV SCH (09:00)
[2020-10-24] MEDS: PIPERACILLIN/TAZO/PMX 3.375GM 50 ML IV SCH ×3 (09:12→19:56)
[2020-10-24] MEDS: SODIUM CHLORIDE FLUSH 10ML SYR IVF SCH ×2 (09:12→19:56)
[2020-10-24] MEDS ORDERED: MAGNESIUM SULFATE PMX 4GM/100M 100 ML IVPB ONE (09:30)
[2020-10-24] MEDS ORDERED: DEXMEDETOMIDINE 200 MCG in SODIUM CHLORIDE 0.9% 48 ML IV PRN (09:30)
[2020-10-24] MEDS: POTASSIUM CHLORIDE 20 MEQ PACKET PO SCH ×2 (10:09→20:42)
[2020-10-24] MEDS: INSULIN LISPRO 100 UNITS/ML, PEN SQ-INSULIN SCH ×3 (10:09→21:00)
[2020-10-24 12:58] LABS: VANCOMYCIN,TROUGH 36.3 mcg/mL (5.0-10.0)
[2020-10-24 19:58] VITALS: BP 95/60
[2020-10-24] MEDS: OXYcodone IR 5MG TABLET PO PRN (20:41)
[2020-10-25] MEDS: PIPERACILLIN/TAZO/PMX 3.375GM 50 ML IV SCH ×3 (01:54→13:47)
[2020-10-25 02:41] VITALS: BP 92/64
[2020-10-25] MEDS: INSULIN LISPRO 100 UNITS/ML, PEN SQ-INSULIN SCH ×4 (03:01→20:43)
[2020-10-25 05:31] LABS: BASOPHILS % (AUTO) 0 % (0-1); EOSINOPHILS % (AUTO) 0 % (1-7); LYMPHOCYTES % (AUTO) 13 % (22-44); MEAN CORPUSCULAR HEMOGLOBIN 31.6 pg (27.5-34.5); MEAN CORPUSCULAR HGB CONC 32.7 g/dL (33.2-36.2); MEAN PLATELET VOLUME 8.5 fL (7.4-10.4); MONOCYTES % (AUTO) 6 % (2-9); NEUTROPHILS % (AUTO) 81 % (42-75); PLATELET COUNT 228 x10^3/uL (130-400); RED BLOOD COUNT 4.15 x10^6/uL (4.38-5.82); RED CELL DISTRIBUTION WIDTH 13.8 % (9.4-14.8)
[2020-10-25 05:33] LABS: MD NO
[2020-10-25 05:36] LABS: ANION GAP 8 mmol/L (5-15); CALCIUM 7.1 mg/dL (8.5-10.1); CHLORIDE 111 mmol/L (98-107); CREATININE 2.29 mg/dL (0.7-1.3)
[2020-10-25 07:37] VITALS: BP 95/64
[2020-10-25] MEDS: SODIUM CHLORIDE FLUSH 10ML SYR IVF SCH ×2 (08:40→21:27)
[2020-10-25] MEDS: CARVEDILOL 3.125 MG TABLET PO SCH ×2 (08:46→17:46)
[2020-10-25 11:56] VITALS: BP 100/79
[2020-10-25 13:11] VITALS: BP 100/79
[2020-10-25] MEDS ORDERED: ALBUMIN HUMAN 25% 100 ML IV ONE (15:30)
[2020-10-25] MEDS ORDERED: FUROSEMIDE 20 MG/2 ML IV ONE (15:30)
[2020-10-25 17:54] VITALS: BP 93/55
[2020-10-25 18:04] LABS: CHLORIDE,URINE RANDOM 15 mmol/L; POTASSIUM,URINE RANDOM 43 mmol/L; SODIUM,URINE RANDOM 20 mmol/L
[2020-10-25 19:43] VITALS: BP 124/80
[2020-10-25] MEDS: PIPERACILLIN/TAZO/PMX 2.25GM 50 ML IVPB SCH (21:27)
[2020-10-26 02:43] VITALS: BP 118/87
[2020-10-26] MEDS: PIPERACILLIN/TAZO/PMX 2.25GM 50 ML IVPB SCH ×4 (04:18→22:05)
[2020-10-26] MEDS: CARVEDILOL 3.125 MG TABLET PO SCH ×2 (05:48→17:12)
[2020-10-26 06:22] LABS: BASOPHILS % (AUTO) 1 % (0-1); EOSINOPHILS % (AUTO) 1 % (1-7); LYMPHOCYTES % (AUTO) 24 % (22-44); MEAN CORPUSCULAR HGB CONC 33.2 g/dL (33.2-36.2); MEAN PLATELET VOLUME 8.7 fL (7.4-10.4); MONOCYTES % (AUTO) 7 % (2-9); NEUTROPHILS % (AUTO) 67 % (42-75); PLATELET COUNT 204 x10^3/uL (130-400); RED BLOOD COUNT 4.33 x10^6/uL (4.38-5.82); RED CELL DISTRIBUTION WIDTH 14.1 % (9.4-14.8)
[2020-10-26 06:26] LABS: CHLORIDE 108 mmol/L (98-107)
[2020-10-26 06:37] LABS: MD NO
[2020-10-26 06:46] LABS: ALANINE AMINOTRANSFERASE 22 U/L (12-78); ALBUMIN 2.3 g/dL (3.4-5.0); ALKALINE PHOSPHATASE 102 U/L (45-117); ANION GAP 12 mmol/L (5-15); BILIRUBIN,TOTAL 0.5 mg/dL (0.2-1.0); CALCIUM 8.2 mg/dL (8.5-10.1); CREATININE 2.69 mg/dL (0.7-1.3); TOTAL PROTEIN 6.6 g/dL (6.4-8.2); VANCOMYCIN,RANDOM 27.9 mcg/mL
[2020-10-26 06:54] VITALS: BP 133/92
[2020-10-26] MEDS: INSULIN LISPRO 100 UNITS/ML, PEN SQ-INSULIN SCH ×4 (07:00→21:00)
[2020-10-26] MEDS: SODIUM CHLORIDE FLUSH 10ML SYR IVF SCH ×2 (08:37→21:00)
[2020-10-26 13:21] VITALS: BP 134/94
[2020-10-26 20:06] VITALS: BP 113/78
[2020-10-27 01:43] VITALS: BP 132/93
[2020-10-27] MEDS: PIPERACILLIN/TAZO/PMX 2.25GM 50 ML IVPB SCH ×4 (03:41→21:54)
[2020-10-27] MEDS: CARVEDILOL 3.125 MG TABLET PO SCH ×2 (06:22→17:58)
[2020-10-27] MEDS: INSULIN LISPRO 100 UNITS/ML, PEN SQ-INSULIN SCH ×4 (07:00→21:54)
[2020-10-27 07:14] VITALS: BP 122/87
[2020-10-27] MEDS: SODIUM CHLORIDE FLUSH 10ML SYR IVF SCH ×2 (08:43→21:53)
[2020-10-27] MEDS ORDERED: HEPARIN 5,000 UNITS/ML, 1ML IV ONE (09:00)
[2020-10-27] MEDS: CHOLECALCIFEROL 5,000u TAB PO SCH (10:16)
[2020-10-27] MEDS: MULTIVITS,STRESS FORMULA 1 TABLET PO SCH (10:16)
[2020-10-27] MEDS: ZINC SULFATE 220 MG CAPSULE PO SCH (10:16)
[2020-10-27 14:17] VITALS: BP 142/97
[2020-10-27 14:20] LABS: BASOPHILS % (AUTO) 1 % (0-1); EOSINOPHILS % (AUTO) 2 % (1-7); LYMPHOCYTES % (AUTO) 24 % (22-44); MEAN CORPUSCULAR HEMOGLOBIN 31.8 pg (27.5-34.5); MEAN CORPUSCULAR HGB CONC 32.8 g/dL (33.2-36.2); MEAN PLATELET VOLUME 8.5 fL (7.4-10.4); MONOCYTES % (AUTO) 9 % (2-9); NEUTROPHILS % (AUTO) 66 % (42-75); PLATELET COUNT 188 x10^3/uL (130-400); RED BLOOD COUNT 3.79 x10^6/uL (4.38-5.82); RED CELL DISTRIBUTION WIDTH 13.8 % (9.4-14.8)
[2020-10-27 14:22] LABS: MD NO
[2020-10-27 14:25] LABS: ALBUMIN 1.9 g/dL (3.4-5.0); ANION GAP 6 mmol/L (5-15); CHLORIDE 111 mmol/L (98-107); CREATININE 2.89 mg/dL (0.7-1.3)
[2020-10-27] MEDS: HEPARIN 25,000 UNITS/250ML PMX 250 ML IV PRN (14:57)
[2020-10-27] MEDS: ASCORBIC ACID 500 MG TABLET PO SCH (17:58)
[2020-10-27 19:35] VITALS: BP 138/85
[2020-10-27] MEDS: HEPARIN 5,000 UNITS/ML, 1ML IV PRN (22:59)
[2020-10-28 03:15] VITALS: BP 126/85
[2020-10-28] MEDS: PIPERACILLIN/TAZO/PMX 2.25GM 50 ML IVPB SCH (04:08)
[2020-10-28] MEDS: CARVEDILOL 3.125 MG TABLET PO SCH (05:03)
[2020-10-28 05:32] LABS: ALBUMIN 1.7 g/dL (3.4-5.0); ANION GAP 6 mmol/L (5-15); CHLORIDE 110 mmol/L (98-107)
[2020-10-28 05:34] LABS: CREATININE 2.86 mg/dL (0.7-1.3)
[2020-10-28] MEDS: HEPARIN 5,000 UNITS/ML, 1ML IV PRN ×2 (06:27→14:04)
[2020-10-28 06:43] LABS: BASOPHILS % (AUTO) 1 % (0-1); EOSINOPHILS % (AUTO) 2 % (1-7); LYMPHOCYTES % (AUTO) 22 % (22-44); MEAN CORPUSCULAR HEMOGLOBIN 31.5 pg (27.5-34.5); MEAN CORPUSCULAR HGB CONC 32.5 g/dL (33.2-36.2); MEAN PLATELET VOLUME 8.3 fL (7.4-10.4); MONOCYTES % (AUTO) 7 % (2-9); NEUTROPHILS % (AUTO) 68 % (42-75); PLATELET COUNT 226 x10^3/uL (130-400); RED BLOOD COUNT 4.43 x10^6/uL (4.38-5.82)
[2020-10-28 06:51] LABS: MD NO
[2020-10-28] MEDS: INSULIN LISPRO 100 UNITS/ML, PEN SQ-INSULIN SCH ×4 (07:00→21:00)
[2020-10-28 07:14] VITALS: BP 137/89
[2020-10-28] MEDS: HEPARIN 25,000 UNITS/250ML PMX 250 ML IV PRN ×2 (07:47→22:25)
[2020-10-28] MEDS: CHOLECALCIFEROL 5,000u TAB PO SCH (08:30)
[2020-10-28] MEDS: MULTIVITS,STRESS FORMULA 1 TABLET PO SCH (08:30)
[2020-10-28] MEDS: SODIUM CHLORIDE FLUSH 10ML SYR IVF SCH ×2 (08:31→22:26)
[2020-10-28] MEDS: ZINC SULFATE 220 MG CAPSULE PO SCH (08:31)
[2020-10-28] MEDS: ASCORBIC ACID 500 MG TABLET PO SCH ×2 (08:31→17:12)
[2020-10-28] MEDS: AMPICILLIN 2 GM in SODIUM CHLORIDE 0.9% 100 ML IV SCH ×3 (09:55→22:26)
[2020-10-28] MEDS: OXYcodone IR 5MG TABLET PO PRN (10:02)
[2020-10-28 13:14] LABS: MICROSCOPIC AUTO
[2020-10-28] MEDS: ALBUMIN HUMAN 25% 100 ML IV SCH (14:03)
[2020-10-28 15:35] VITALS: BP 117/83
[2020-10-28] MEDS: CARVEDILOL 6.25 MG TABLET PO SCH (17:13)
[2020-10-28 19:32] VITALS: BP 135/85
[2020-10-29 02:25] VITALS: BP 139/90
[2020-10-29] MEDS: HEPARIN 5,000 UNITS/ML, 1ML IV PRN ×2 (04:25→12:17)
[2020-10-29] MEDS: AMPICILLIN 2 GM in SODIUM CHLORIDE 0.9% 100 ML IV SCH ×4 (04:25→23:53)
[2020-10-29] MEDS: CARVEDILOL 6.25 MG TABLET PO SCH ×3 (05:18→18:37)
[2020-10-29] MEDS: INSULIN LISPRO 100 UNITS/ML, PEN SQ-INSULIN SCH ×4 (07:22→21:00)
[2020-10-29] MEDS: ASCORBIC ACID 500 MG TABLET PO SCH ×2 (07:23→16:22)
[2020-10-29 08:05] VITALS: BP 136/88
[2020-10-29] MEDS: MULTIVITS,STRESS FORMULA 1 TABLET PO SCH (09:16)
[2020-10-29] MEDS: SODIUM CHLORIDE FLUSH 10ML SYR IVF SCH ×2 (09:16→20:59)
[2020-10-29] MEDS: ZINC SULFATE 220 MG CAPSULE PO SCH (09:16)
[2020-10-29] MEDS: ALBUMIN HUMAN 25% 100 ML IV SCH (09:16)
[2020-10-29] MEDS: CHOLECALCIFEROL 5,000u TAB PO SCH (09:17)
[2020-10-29] MEDS: HEPARIN 25,000 UNITS/250ML PMX 250 ML IV PRN ×2 (11:05→22:27)
[2020-10-29 11:16] LABS: ANION GAP 7 mmol/L (5-15); CALCIUM 7.7 mg/dL (8.5-10.1); CHLORIDE 112 mmol/L (98-107); CREATININE 2.69 mg/dL (0.7-1.3)
[2020-10-29 13:06] VITALS: BP 134/89
[2020-10-29] MEDS: ISOSORBIDE DINITRATE 10 MG TABLET PO SCH ×2 (16:28→21:00)
[2020-10-29 17:26] LABS: INTERNATIONAL NORMALIZED RATIO 1.21 (0.93-1.1); PROTHROMBIN TIME 12.8 Seconds (9.6-11.5)
[2020-10-29] MEDS ORDERED: WARFARIN 7.5 MG TABLET PO-COUM ONE (18:30)
[2020-10-29 20:16] VITALS: BP 132/85
[2020-10-29] MEDS: LINEZOLID 600 MG TABLET PO SCH (21:00)
[2020-10-30 01:47] VITALS: BP 130/67
[2020-10-30 04:16] LABS: INTERNATIONAL NORMALIZED RATIO 1.3 (0.93-1.1); PROTHROMBIN TIME 13.7 Seconds (9.6-11.5)
[2020-10-30 04:23] LABS: ALBUMIN 2.2 g/dL (3.4-5.0); ANION GAP 9 mmol/L (5-15); CALCIUM 8.3 mg/dL (8.5-10.1); CHLORIDE 111 mmol/L (98-107)
[2020-10-30 04:26] LABS: ALANINE AMINOTRANSFERASE 19 U/L (12-78); ALKALINE PHOSPHATASE 96 U/L (45-117); BILIRUBIN,TOTAL 0.4 mg/dL (0.2-1.0); CREATININE 2.52 mg/dL (0.7-1.3); TOTAL PROTEIN 5.9 g/dL (6.4-8.2)
[2020-10-30] MEDS: AMPICILLIN 2 GM in SODIUM CHLORIDE 0.9% 100 ML IV SCH ×3 (06:05→17:54)
[2020-10-30] MEDS: CARVEDILOL 6.25 MG TABLET PO SCH (06:08)
[2020-10-30] MEDS: INSULIN LISPRO 100 UNITS/ML, PEN SQ-INSULIN SCH ×4 (07:00→20:54)
[2020-10-30 07:45] VITALS: BP 132/88
[2020-10-30] MEDS: CHOLECALCIFEROL 5,000u TAB PO SCH (08:17)
[2020-10-30] MEDS: MULTIVITS,STRESS FORMULA 1 TABLET PO SCH (08:17)
[2020-10-30] MEDS: LINEZOLID 600 MG TABLET PO SCH (08:18)
[2020-10-30] MEDS: ZINC SULFATE 220 MG CAPSULE PO SCH (08:18)
[2020-10-30] MEDS: ASCORBIC ACID 500 MG TABLET PO SCH ×2 (08:18→17:56)
[2020-10-30] MEDS: SODIUM CHLORIDE FLUSH 10ML SYR IVF SCH ×2 (08:19→20:54)
[2020-10-30] MEDS: ALBUMIN HUMAN 25% 100 ML IV SCH (08:19)
[2020-10-30] MEDS: ISOSORBIDE DINITRATE 10 MG TABLET PO SCH ×3 (08:19→20:54)
[2020-10-30] MEDS: HEPARIN 25,000 UNITS/250ML PMX 250 ML IV PRN ×2 (08:30→18:30)
[2020-10-30] MEDS: WARFARIN MODERAT DOSE PROTOCOL XX SCH (12:00)
[2020-10-30] MEDS ORDERED: POTASSIUM CHLORIDE 20 MEQ TAB.ER.PRT PO ONE (13:00)
[2020-10-30 13:05] VITALS: BP 138/94
[2020-10-30] MEDS: FUROSEMIDE 40 MG/4 ML IV SCH (13:59)
[2020-10-30 15:52] VITALS: BP 137/96
[2020-10-30] MEDS: CARVEDILOL 12.5 MG TABLET PO SCH (17:56)
[2020-10-30] MEDS ORDERED: WARFARIN 7.5 MG TABLET PO-COUM ONE (18:00)
[2020-10-30 19:45] VITALS: BP 126/84
[2020-10-30] MEDS: CEFAZOLIN PMX 1GM/50ML 50 ML IV SCH (20:53)
[2020-10-31 02:50] VITALS: BP 134/62
[2020-10-31] MEDS: HEPARIN 25,000 UNITS/250ML PMX 250 ML IV PRN (04:31)
[2020-10-31] MEDS: CEFAZOLIN PMX 1GM/50ML 50 ML IV SCH ×3 (04:32→20:39)
[2020-10-31] MEDS: CARVEDILOL 12.5 MG TABLET PO SCH ×2 (05:23→17:23)
[2020-10-31 06:00] LABS: BASOPHILS % (AUTO) 1 % (0-1); EOSINOPHILS % (AUTO) 2 % (1-7); LYMPHOCYTES % (AUTO) 42 % (22-44); MEAN CORPUSCULAR HEMOGLOBIN 31.1 pg (27.5-34.5); MEAN CORPUSCULAR HGB CONC 32.6 g/dL (33.2-36.2); MEAN PLATELET VOLUME 7.9 fL (7.4-10.4); MONOCYTES % (AUTO) 12 % (2-9); NEUTROPHILS % (AUTO) 44 % (42-75); PLATELET COUNT 262 x10^3/uL (130-400); RED BLOOD COUNT 4.11 x10^6/uL (4.38-5.82); RED CELL DISTRIBUTION WIDTH 13.8 % (9.4-14.8)
[2020-10-31 06:04] LABS: MD NO
[2020-10-31 06:08] LABS: INTERNATIONAL NORMALIZED RATIO 2.81 (0.93-1.1); PROTHROMBIN TIME 29.5 Seconds (9.6-11.5)
[2020-10-31 06:12] LABS: CHLORIDE 111 mmol/L (98-107)
[2020-10-31 06:16] LABS: ANION GAP 9 mmol/L (5-15); CALCIUM 8.5 mg/dL (8.5-10.1)
[2020-10-31] MEDS: INSULIN LISPRO 100 UNITS/ML, PEN SQ-INSULIN SCH ×4 (07:00→20:47)
[2020-10-31 07:40] VITALS: BP 165/99
[2020-10-31] MEDS: MULTIVITS,STRESS FORMULA 1 TABLET PO SCH (09:34)
[2020-10-31] MEDS: ISOSORBIDE DINITRATE 10 MG TABLET PO SCH ×3 (09:34→20:43)
[2020-10-31] MEDS: ZINC SULFATE 220 MG CAPSULE PO SCH (09:34)
[2020-10-31] MEDS: FUROSEMIDE 40 MG/4 ML IV SCH (09:34)
[2020-10-31] MEDS: ASCORBIC ACID 500 MG TABLET PO SCH ×2 (09:34→17:24)
[2020-10-31] MEDS: CHOLECALCIFEROL 5,000u TAB PO SCH (09:34)
[2020-10-31] MEDS: ALBUMIN HUMAN 25% 100 ML IV SCH (09:35)
[2020-10-31] MEDS: SODIUM CHLORIDE FLUSH 10ML SYR IVF SCH ×2 (09:35→20:40)
[2020-10-31] MEDS: OXYcodone IR 5MG TABLET PO PRN ×2 (10:22→17:25)
[2020-10-31] MEDS: WARFARIN MODERAT DOSE PROTOCOL XX SCH (12:00)
[2020-10-31 13:45] VITALS: BP 133/90
[2020-10-31 17:21] VITALS: BP 139/107
[2020-10-31] MEDS: POTASSIUM CHLORIDE 20 MEQ TAB.ER.PRT PO SCH (17:23)
[2020-10-31] MEDS ORDERED: WARFARIN 1 MG TABLET PO-COUM ONE (18:00)
[2020-10-31 19:51] VITALS: BP 134/90
[2020-11-01 00:41] VITALS: BP 128/91
[2020-11-01] MEDS: CEFAZOLIN PMX 1GM/50ML 50 ML IV SCH ×3 (05:04→21:40)
[2020-11-01] MEDS: CARVEDILOL 12.5 MG TABLET PO SCH ×2 (05:04→17:28)
[2020-11-01 05:50] LABS: INTERNATIONAL NORMALIZED RATIO 4.14 (0.93-1.1); PROTHROMBIN TIME 43.3 Seconds (9.6-11.5)
[2020-11-01 05:55] LABS: ANION GAP 6 mmol/L (5-15); CALCIUM 8.1 mg/dL (8.5-10.1); CHLORIDE 112 mmol/L (98-107); CREATININE 2.32 mg/dL (0.7-1.3)
[2020-11-01] MEDS: INSULIN LISPRO 100 UNITS/ML, PEN SQ-INSULIN SCH ×4 (07:00→21:00)
[2020-11-01 07:56] VITALS: BP 141/91
[2020-11-01] MEDS: MULTIVITS,STRESS FORMULA 1 TABLET PO SCH (08:54)
[2020-11-01] MEDS: POTASSIUM CHLORIDE 20 MEQ TAB.ER.PRT PO SCH (08:54)
[2020-11-01] MEDS: ISOSORBIDE DINITRATE 10 MG TABLET PO SCH ×3 (08:55→21:38)
[2020-11-01] MEDS: ASCORBIC ACID 500 MG TABLET PO SCH ×2 (08:55→17:28)
[2020-11-01] MEDS: FUROSEMIDE 40 MG/4 ML IV SCH (08:56)
[2020-11-01] MEDS: ZINC SULFATE 220 MG CAPSULE PO SCH (08:56)
[2020-11-01] MEDS: CHOLECALCIFEROL 5,000u TAB PO SCH (08:56)
[2020-11-01] MEDS: SODIUM CHLORIDE FLUSH 10ML SYR IVF SCH ×2 (08:57→21:49)
[2020-11-01] MEDS: WARFARIN MODERAT DOSE PROTOCOL XX SCH (10:58)
[2020-11-01] MEDS: OXYcodone IR 5MG TABLET PO PRN ×3 (10:59→21:39)
[2020-11-01 12:52] LABS: ANION GAP 10 mmol/L (5-15); CALCIUM 8.3 mg/dL (8.5-10.1); CHLORIDE 112 mmol/L (98-107); CREATININE 2.33 mg/dL (0.7-1.3)
[2020-11-01 13:49] VITALS: BP 124/86
[2020-11-01 19:49] VITALS: BP 121/74
[2020-11-01 21:36] VITALS: BP 136/98
[2020-11-02] VITALS (7 sets, daily range): BP systolic 119–142; BP diastolic 83–106
[2020-11-02 05:22] LABS: PROTHROMBIN TIME 55.6 Seconds (9.6-11.5)
[2020-11-02 05:23] LABS: INTERNATIONAL NORMALIZED RATIO 5.33 (0.93-1.1)
[2020-11-02] MEDS: CEFAZOLIN PMX 1GM/50ML 50 ML IV SCH ×3 (05:43→22:13)
[2020-11-02] MEDS: CARVEDILOL 12.5 MG TABLET PO SCH ×2 (05:43→17:20)
[2020-11-02] MEDS: INSULIN LISPRO 100 UNITS/ML, PEN SQ-INSULIN SCH ×4 (07:00→22:16)
[2020-11-02] MEDS: ZINC SULFATE 220 MG CAPSULE PO SCH (08:11)
[2020-11-02] MEDS: POTASSIUM CHLORIDE 20 MEQ TAB.ER.PRT PO SCH ×2 (08:11→22:14)
[2020-11-02] MEDS: ASCORBIC ACID 500 MG TABLET PO SCH ×2 (08:11→17:20)
[2020-11-02] MEDS: OXYcodone IR 5MG TABLET PO PRN ×3 (08:12→22:14)
[2020-11-02] MEDS: ISOSORBIDE DINITRATE 10 MG TABLET PO SCH ×3 (08:12→22:14)
[2020-11-02] MEDS: CHOLECALCIFEROL 5,000u TAB PO SCH (08:12)
[2020-11-02] MEDS: FUROSEMIDE 40 MG/4 ML IV SCH (08:12)
[2020-11-02] MEDS: SODIUM CHLORIDE FLUSH 10ML SYR IVF SCH ×2 (08:13→22:15)
[2020-11-02] MEDS: MULTIVITS,STRESS FORMULA 1 TABLET PO SCH (08:13)
[2020-11-02] MEDS ORDERED: FUROSEMIDE 40 MG/4 ML IV ONE ×2 (10:30→17:00)
[2020-11-02] MEDS ORDERED: FUROSEMIDE 40 MG/4 ML ONE (10:45)
[2020-11-02] MEDS: WARFARIN MODERAT DOSE PROTOCOL XX SCH (11:15)
[2020-11-03 03:36] VITALS: BP 158/82
[2020-11-03] MEDS: OXYcodone IR 5MG TABLET PO PRN ×2 (04:45→21:31)
[2020-11-03] MEDS: CEFAZOLIN PMX 1GM/50ML 50 ML IV SCH ×3 (05:41→21:32)
[2020-11-03] MEDS: CARVEDILOL 12.5 MG TABLET PO SCH ×2 (06:06→17:01)
[2020-11-03 06:32] LABS: INTERNATIONAL NORMALIZED RATIO 3.32 (0.93-1.1); PROTHROMBIN TIME 34.8 Seconds (9.6-11.5)
[2020-11-03] MEDS: INSULIN LISPRO 100 UNITS/ML, PEN SQ-INSULIN SCH ×4 (07:00→21:00)
[2020-11-03 07:16] VITALS: BP 145/103
[2020-11-03] MEDS ORDERED: FUROSEMIDE 100 MG/10 ML IV SCH ×2 (07:30→09:00)
[2020-11-03] MEDS: CHOLECALCIFEROL 5,000u TAB PO SCH (08:13)
[2020-11-03] MEDS: ASCORBIC ACID 500 MG TABLET PO SCH ×2 (08:14→17:00)
[2020-11-03] MEDS: POTASSIUM CHLORIDE 20 MEQ TAB.ER.PRT PO SCH ×2 (08:14→20:59)
[2020-11-03] MEDS: MULTIVITS,STRESS FORMULA 1 TABLET PO SCH (08:14)
[2020-11-03] MEDS: SODIUM CHLORIDE FLUSH 10ML SYR IVF SCH ×2 (08:14→20:59)
[2020-11-03] MEDS: FUROSEMIDE 40 MG/4 ML IV SCH ×2 (08:14→17:01)
[2020-11-03] MEDS: ISOSORBIDE DINITRATE 10 MG TABLET PO SCH (08:14)
[2020-11-03] MEDS: ZINC SULFATE 220 MG CAPSULE PO SCH (08:14)
[2020-11-03 10:45] LABS: ANION GAP 3 mmol/L (5-15); CALCIUM 8.1 mg/dL (8.5-10.1); CHLORIDE 113 mmol/L (98-107); CREATININE 2.23 mg/dL (0.7-1.3)
[2020-11-03] MEDS: ISOSORBIDE MONONITRATE ER 60 MG TABLET PO SCH (11:45)
[2020-11-03] MEDS: WARFARIN MODERAT DOSE PROTOCOL XX SCH (12:00)
[2020-11-03 13:46] VITALS: BP 148/90
[2020-11-03 17:02] VITALS: BP 147/106
[2020-11-03] MEDS ORDERED: WARFARIN 1 MG TABLET PO-COUM ONE (18:00)
[2020-11-03 19:25] VITALS: BP 137/89
[2020-11-03 20:58] VITALS: BP 143/97
[2020-11-04 01:38] VITALS: BP 148/100
[2020-11-04 05:15] LABS: BASOPHILS % (AUTO) 1 % (0-1); EOSINOPHILS % (AUTO) 2 % (1-7); LYMPHOCYTES % (AUTO) 32 % (22-44); MEAN CORPUSCULAR HEMOGLOBIN 30.9 pg (27.5-34.5); MEAN CORPUSCULAR HGB CONC 32.4 g/dL (33.2-36.2); MEAN PLATELET VOLUME 7.9 fL (7.4-10.4); MONOCYTES % (AUTO) 7 % (2-9); NEUTROPHILS % (AUTO) 59 % (42-75); PLATELET COUNT 277 x10^3/uL (130-400); RED BLOOD COUNT 4.14 x10^6/uL (4.38-5.82)
[2020-11-04 05:21] LABS: INTERNATIONAL NORMALIZED RATIO 3.14 (0.93-1.1); PROTHROMBIN TIME 32.9 Seconds (9.6-11.5)
[2020-11-04 05:22] LABS: ALBUMIN 2.3 g/dL (3.4-5.0); ANION GAP 5 mmol/L (5-15); CHLORIDE 111 mmol/L (98-107)
[2020-11-04 05:23] LABS: CREATININE 2.04 mg/dL (0.7-1.3)
[2020-11-04 05:34] VITALS: BP 142/100
[2020-11-04] MEDS: CEFAZOLIN PMX 1GM/50ML 50 ML IV SCH ×3 (05:35→21:25)
[2020-11-04] MEDS: CARVEDILOL 12.5 MG TABLET PO SCH ×2 (05:36→17:04)
[2020-11-04 05:41] LABS: MD NO
[2020-11-04] MEDS: INSULIN LISPRO 100 UNITS/ML, PEN SQ-INSULIN SCH ×4 (07:00→21:24)
[2020-11-04 07:49] VITALS: BP 139/95
[2020-11-04] MEDS: MULTIVITS,STRESS FORMULA 1 TABLET PO SCH (07:56)
[2020-11-04] MEDS: ISOSORBIDE MONONITRATE ER 60 MG TABLET PO SCH (07:57)
[2020-11-04] MEDS: MAGNESIUM OXIDE 400 MG TABLET PO SCH ×2 (07:57→21:24)
[2020-11-04] MEDS: POTASSIUM CHLORIDE 20 MEQ TAB.ER.PRT PO SCH ×2 (07:57→21:24)
[2020-11-04] MEDS: ZINC SULFATE 220 MG CAPSULE PO SCH (07:57)
[2020-11-04] MEDS: ASCORBIC ACID 500 MG TABLET PO SCH ×2 (07:58→17:05)
[2020-11-04] MEDS: CHOLECALCIFEROL 5,000u TAB PO SCH (07:58)
[2020-11-04] MEDS: FUROSEMIDE 40 MG/4 ML IV SCH ×2 (07:58→17:05)
[2020-11-04] MEDS: SODIUM CHLORIDE FLUSH 10ML SYR IVF SCH ×2 (07:59→21:25)
[2020-11-04] MEDS: OXYcodone IR 5MG TABLET PO PRN (07:59)
[2020-11-04] MEDS: WARFARIN MODERAT DOSE PROTOCOL XX SCH (12:00)
[2020-11-04 13:20] VITALS: BP 132/88
[2020-11-04 16:10] VITALS: BP 134/91
[2020-11-04] MEDS ORDERED: WARFARIN 2 MG TABLET PO-COUM ONE (18:00)
[2020-11-04 19:22] VITALS: BP 145/88
[2020-11-05 02:24] VITALS: BP 134/82
[2020-11-05] MEDS: CEFAZOLIN PMX 1GM/50ML 50 ML IV SCH ×3 (05:39→22:09)
[2020-11-05] MEDS: CARVEDILOL 12.5 MG TABLET PO SCH ×2 (05:40→17:59)
[2020-11-05 06:02] LABS: BASOPHILS % (AUTO) 2 % (0-1); EOSINOPHILS % (AUTO) 1 % (1-7); LYMPHOCYTES % (AUTO) 34 % (22-44); MEAN CORPUSCULAR HEMOGLOBIN 31.1 pg (27.5-34.5); MEAN CORPUSCULAR HGB CONC 32.8 g/dL (33.2-36.2); MEAN PLATELET VOLUME 7.6 fL (7.4-10.4); MONOCYTES % (AUTO) 7 % (2-9); NEUTROPHILS % (AUTO) 56 % (42-75); PLATELET COUNT 321 x10^3/uL (130-400); RED BLOOD COUNT 4.21 x10^6/uL (4.38-5.82); RED CELL DISTRIBUTION WIDTH 14.3 % (9.4-14.8)
[2020-11-05 06:04] LABS: MD NO
[2020-11-05 06:12] LABS: PROTHROMBIN TIME 31.4 Seconds (9.6-11.5)
[2020-11-05 06:14] LABS: ALBUMIN 2.4 g/dL (3.4-5.0); ANION GAP 7 mmol/L (5-15); CALCIUM 7.8 mg/dL (8.5-10.1); CHLORIDE 108 mmol/L (98-107)
[2020-11-05 06:16] LABS: CREATININE 1.95 mg/dL (0.7-1.3)
[2020-11-05] MEDS ORDERED: METOLAZONE 2.5 MG TABLET PO ONE (07:00)
[2020-11-05] MEDS: INSULIN LISPRO 100 UNITS/ML, PEN SQ-INSULIN SCH ×4 (07:02→21:00)
[2020-11-05 07:52] VITALS: BP 126/83
[2020-11-05] MEDS: ZINC SULFATE 220 MG CAPSULE PO SCH (07:54)
[2020-11-05] MEDS: POTASSIUM CHLORIDE 20 MEQ TAB.ER.PRT PO SCH ×2 (07:54→20:51)
[2020-11-05] MEDS: ASCORBIC ACID 500 MG TABLET PO SCH ×2 (07:55→17:59)
[2020-11-05] MEDS: FUROSEMIDE 40 MG/4 ML IV SCH ×2 (07:55→17:59)
[2020-11-05] MEDS: CHOLECALCIFEROL 5,000u TAB PO SCH (07:55)
[2020-11-05] MEDS: MULTIVITS,STRESS FORMULA 1 TABLET PO SCH (07:55)
[2020-11-05] MEDS: MAGNESIUM OXIDE 400 MG TABLET PO SCH ×2 (07:56→20:51)
[2020-11-05] MEDS: SODIUM CHLORIDE FLUSH 10ML SYR IVF SCH ×2 (07:56→21:04)
[2020-11-05] MEDS: ISOSORBIDE MONONITRATE ER 60 MG TABLET PO SCH (07:56)
[2020-11-05] MEDS: OXYcodone IR 5MG TABLET PO PRN ×2 (08:12→21:03)
[2020-11-05] MEDS: WARFARIN MODERAT DOSE PROTOCOL XX SCH (12:00)
[2020-11-05 15:11] VITALS: BP 130/88
[2020-11-05] MEDS ORDERED: WARFARIN 2.5 MG TABLET PO-COUM ONE (18:00)
[2020-11-05 18:51] VITALS: BP 130/91
[2020-11-05] MEDS: ACETAMINOPHEN 325 MG TABLET PO PRN (21:03)
[2020-11-06 01:41] VITALS: BP 113/72
[2020-11-06] MEDS: CEFAZOLIN PMX 1GM/50ML 50 ML IV SCH ×3 (05:57→21:36)
[2020-11-06] MEDS: CARVEDILOL 12.5 MG TABLET PO SCH ×2 (05:57→16:57)
[2020-11-06] MEDS: INSULIN LISPRO 100 UNITS/ML, PEN SQ-INSULIN SCH ×4 (06:06→21:36)
[2020-11-06 06:28] LABS: ALBUMIN 2.3 g/dL (3.4-5.0); ANION GAP 4 mmol/L (5-15); CALCIUM 8.1 mg/dL (8.5-10.1); CHLORIDE 109 mmol/L (98-107)
[2020-11-06 06:32] LABS: ALANINE AMINOTRANSFERASE 8 U/L (12-78); ALKALINE PHOSPHATASE 75 U/L (45-117); BILIRUBIN,TOTAL 0.3 mg/dL (0.2-1.0); CREATININE 1.81 mg/dL (0.7-1.3); TOTAL PROTEIN 6.1 g/dL (6.4-8.2)
[2020-11-06 06:33] LABS: BASOPHILS % (AUTO) 1 % (0-1); EOSINOPHILS % (AUTO) 2 % (1-7); LYMPHOCYTES % (AUTO) 36 % (22-44); MEAN CORPUSCULAR HEMOGLOBIN 30.9 pg (27.5-34.5); MEAN CORPUSCULAR HGB CONC 32.5 g/dL (33.2-36.2); MEAN PLATELET VOLUME 7.9 fL (7.4-10.4); MONOCYTES % (AUTO) 7 % (2-9); NEUTROPHILS % (AUTO) 54 % (42-75); PLATELET COUNT 274 x10^3/uL (130-400); RED BLOOD COUNT 3.97 x10^6/uL (4.38-5.82); RED CELL DISTRIBUTION WIDTH 13.9 % (9.4-14.8)
[2020-11-06 06:38] LABS: INTERNATIONAL NORMALIZED RATIO 2.4 (0.93-1.1); PROTHROMBIN TIME 25.2 Seconds (9.6-11.5)
[2020-11-06 06:47] LABS: MD NO
[2020-11-06 07:50] VITALS: BP 132/90
[2020-11-06] MEDS: MAGNESIUM OXIDE 400 MG TABLET PO SCH ×2 (07:58→21:37)
[2020-11-06] MEDS: ISOSORBIDE MONONITRATE ER 60 MG TABLET PO SCH (07:58)
[2020-11-06] MEDS: MULTIVITS,STRESS FORMULA 1 TABLET PO SCH (07:58)
[2020-11-06] MEDS: ZINC SULFATE 220 MG CAPSULE PO SCH (07:59)
[2020-11-06] MEDS: CHOLECALCIFEROL 5,000u TAB PO SCH (07:59)
[2020-11-06] MEDS: FUROSEMIDE 40 MG/4 ML IV SCH ×2 (07:59→16:56)
[2020-11-06] MEDS: ASCORBIC ACID 500 MG TABLET PO SCH ×2 (07:59→16:57)
[2020-11-06] MEDS: OXYcodone IR 5MG TABLET PO PRN (08:00)
[2020-11-06] MEDS: POTASSIUM CHLORIDE 20 MEQ TAB.ER.PRT PO SCH ×2 (08:00→21:37)
[2020-11-06] MEDS: ACETAMINOPHEN 325 MG TABLET PO PRN (08:01)
[2020-11-06] MEDS: SODIUM CHLORIDE FLUSH 10ML SYR IVF SCH ×2 (08:01→21:37)
[2020-11-06] MEDS ORDERED: METOLAZONE 5 MG TABLET PO SCH (11:00)
[2020-11-06] MEDS: WARFARIN MODERAT DOSE PROTOCOL XX SCH (12:00)
[2020-11-06 14:17] VITALS: BP 121/81
[2020-11-06] MEDS ORDERED: WARFARIN 2.5 MG TABLET PO-COUM ONE (18:00)
[2020-11-06 21:42] VITALS: BP 131/94
[2020-11-07 02:20] VITALS: BP 141/87
[2020-11-07] MEDS: CEFAZOLIN PMX 1GM/50ML 50 ML IV SCH (06:02)
[2020-11-07] MEDS: METOLAZONE 5 MG TABLET PO SCH (06:02)
[2020-11-07] MEDS: CARVEDILOL 12.5 MG TABLET PO SCH ×2 (06:02→17:14)
[2020-11-07] MEDS: INSULIN LISPRO 100 UNITS/ML, PEN SQ-INSULIN SCH ×4 (06:11→20:40)
[2020-11-07 06:18] LABS: BASOPHILS % (AUTO) 1 % (0-1); EOSINOPHILS % (AUTO) 2 % (1-7); LYMPHOCYTES % (AUTO) 34 % (22-44); MEAN CORPUSCULAR HGB CONC 32.8 g/dL (33.2-36.2); MEAN PLATELET VOLUME 7.9 fL (7.4-10.4); MONOCYTES % (AUTO) 8 % (2-9); NEUTROPHILS % (AUTO) 55 % (42-75); PLATELET COUNT 292 x10^3/uL (130-400); RED CELL DISTRIBUTION WIDTH 13.8 % (9.4-14.8)
[2020-11-07 06:21] LABS: MD NO
[2020-11-07 06:32] LABS: ALBUMIN 2.4 g/dL (3.4-5.0); ANION GAP 5 mmol/L (5-15); CALCIUM 8.1 mg/dL (8.5-10.1); CHLORIDE 106 mmol/L (98-107); CREATININE 1.75 mg/dL (0.7-1.3); INTERNATIONAL NORMALIZED RATIO 3.1 (0.93-1.1); PROTHROMBIN TIME 32.4 Seconds (9.6-11.5)
[2020-11-07] MEDS ORDERED: METOLAZONE 2.5 MG TABLET PO ONE (07:00)
[2020-11-07 07:50] VITALS: BP 132/84
[2020-11-07] MEDS: MAGNESIUM OXIDE 400 MG TABLET PO SCH ×2 (09:00→20:40)
[2020-11-07] MEDS: FUROSEMIDE 40 MG/4 ML IV SCH ×2 (09:00→17:13)
[2020-11-07] MEDS: CHOLECALCIFEROL 5,000u TAB PO SCH (09:00)
[2020-11-07] MEDS: ISOSORBIDE MONONITRATE ER 60 MG TABLET PO SCH (09:01)
[2020-11-07] MEDS: POTASSIUM CHLORIDE 20 MEQ TAB.ER.PRT PO SCH ×2 (09:01→20:40)
[2020-11-07] MEDS: ZINC SULFATE 220 MG CAPSULE PO SCH (09:01)
[2020-11-07] MEDS: ASCORBIC ACID 500 MG TABLET PO SCH ×2 (09:01→17:13)
[2020-11-07] MEDS: MULTIVITS,STRESS FORMULA 1 TABLET PO SCH (09:01)
[2020-11-07] MEDS: SODIUM CHLORIDE FLUSH 10ML SYR IVF SCH ×2 (09:02→20:42)
[2020-11-07] MEDS: LACTOBACILLUS CHEW TABLET PO SCH ×3 (11:20→20:38)
[2020-11-07] MEDS: WARFARIN MODERAT DOSE PROTOCOL XX SCH (12:00)
[2020-11-07 14:45] VITALS: BP 138/92
[2020-11-07] MEDS ORDERED: WARFARIN 1 MG TABLET PO-COUM ONE (18:00)
[2020-11-07 19:22] VITALS: BP 117/76
[2020-11-07] MEDS: ACETAMINOPHEN 325 MG TABLET PO PRN (20:38)
[2020-11-08 01:15] VITALS: BP 127/84
[2020-11-08 04:41] LABS: INTERNATIONAL NORMALIZED RATIO 2.52 (0.93-1.1); PROTHROMBIN TIME 26.5 Seconds (9.6-11.5)
[2020-11-08 04:42] LABS: ALBUMIN 2.4 g/dL (3.4-5.0); ANION GAP 4 mmol/L (5-15); CALCIUM 7.9 mg/dL (8.5-10.1); CHLORIDE 105 mmol/L (98-107); CREATININE 1.84 mg/dL (0.7-1.3)
[2020-11-08 04:43] LABS: ALANINE AMINOTRANSFERASE < 6 U/L (12-78); BASOPHILS % (AUTO) 2 % (0-1); EOSINOPHILS % (AUTO) 2 % (1-7); LYMPHOCYTES % (AUTO) 40 % (22-44); MEAN CORPUSCULAR HEMOGLOBIN 30.9 pg (27.5-34.5); MEAN CORPUSCULAR HGB CONC 32.7 g/dL (33.2-36.2); MONOCYTES % (AUTO) 9 % (2-9); NEUTROPHILS % (AUTO) 47 % (42-75); PLATELET COUNT 271 x10^3/uL (130-400); RED BLOOD COUNT 4.06 x10^6/uL (4.38-5.82); RED CELL DISTRIBUTION WIDTH 13.8 % (9.4-14.8)
[2020-11-08 04:44] LABS: ALKALINE PHOSPHATASE 82 U/L (45-117); BILIRUBIN,TOTAL 0.3 mg/dL (0.2-1.0); TOTAL PROTEIN 6.3 g/dL (6.4-8.2)
[2020-11-08 04:50] LABS: MD NO
[2020-11-08] MEDS: CARVEDILOL 12.5 MG TABLET PO SCH ×2 (06:05→17:08)
[2020-11-08] MEDS: METOLAZONE 5 MG TABLET PO SCH (06:07)
[2020-11-08] MEDS: INSULIN LISPRO 100 UNITS/ML, PEN SQ-INSULIN SCH ×4 (06:09→21:39)
[2020-11-08 07:14] VITALS: BP 128/87
[2020-11-08] MEDS: FUROSEMIDE 40 MG/4 ML IV SCH ×2 (10:01→17:10)
[2020-11-08] MEDS: ZINC SULFATE 220 MG CAPSULE PO SCH (10:02)
[2020-11-08] MEDS: ASCORBIC ACID 500 MG TABLET PO SCH ×2 (10:02→17:08)
[2020-11-08] MEDS: MULTIVITS,STRESS FORMULA 1 TABLET PO SCH (10:02)
[2020-11-08] MEDS: ACETAMINOPHEN 325 MG TABLET PO PRN ×2 (10:02→21:42)
[2020-11-08] MEDS: CHOLECALCIFEROL 5,000u TAB PO SCH (10:03)
[2020-11-08] MEDS: LACTOBACILLUS CHEW TABLET PO SCH ×3 (10:04→21:41)
[2020-11-08] MEDS: MAGNESIUM OXIDE 400 MG TABLET PO SCH ×2 (10:04→21:41)
[2020-11-08] MEDS: POTASSIUM CHLORIDE 20 MEQ TAB.ER.PRT PO SCH ×2 (10:04→21:41)
[2020-11-08] MEDS: ISOSORBIDE MONONITRATE ER 60 MG TABLET PO SCH (10:04)
[2020-11-08] MEDS: SODIUM CHLORIDE FLUSH 10ML SYR IVF SCH ×2 (10:05→21:43)
[2020-11-08] MEDS: WARFARIN MODERAT DOSE PROTOCOL XX SCH (11:37)
[2020-11-08 13:20] VITALS: BP 111/68
[2020-11-08] MEDS ORDERED: WARFARIN 1 MG TABLET PO-COUM SCH (18:00)
[2020-11-08 19:42] VITALS: BP 119/76
[2020-11-09 01:10] VITALS: BP 118/78
[2020-11-09] MEDS: CARVEDILOL 12.5 MG TABLET PO SCH ×2 (05:57→17:01)
[2020-11-09] MEDS: METOLAZONE 5 MG TABLET PO SCH (05:58)
[2020-11-09 06:17] LABS: ALANINE AMINOTRANSFERASE 13 U/L (12-78); ALBUMIN 2.6 g/dL (3.4-5.0); ANION GAP 6 mmol/L (5-15); CALCIUM 8.2 mg/dL (8.5-10.1); CHLORIDE 103 mmol/L (98-107); CREATININE 1.57 mg/dL (0.7-1.3)
[2020-11-09 06:20] LABS: ALKALINE PHOSPHATASE 87 U/L (45-117); BILIRUBIN,TOTAL 0.5 mg/dL (0.2-1.0); TOTAL PROTEIN 6.5 g/dL (6.4-8.2)
[2020-11-09] MEDS: INSULIN LISPRO 100 UNITS/ML, PEN SQ-INSULIN SCH ×4 (06:35→21:21)
[2020-11-09 07:25] VITALS: BP 124/84
[2020-11-09] MEDS: FUROSEMIDE 40 MG/4 ML IV SCH ×2 (08:06→17:01)
[2020-11-09] MEDS: POTASSIUM CHLORIDE 20 MEQ TAB.ER.PRT PO SCH ×2 (08:06→21:21)
[2020-11-09] MEDS: CHOLECALCIFEROL 5,000u TAB PO SCH (08:07)
[2020-11-09] MEDS: ASCORBIC ACID 500 MG TABLET PO SCH ×2 (08:07→17:01)
[2020-11-09] MEDS: ZINC SULFATE 220 MG CAPSULE PO SCH (08:07)
[2020-11-09] MEDS: LACTOBACILLUS CHEW TABLET PO SCH ×3 (08:08→21:21)
[2020-11-09] MEDS: ISOSORBIDE MONONITRATE ER 60 MG TABLET PO SCH (08:08)
[2020-11-09] MEDS: SODIUM CHLORIDE FLUSH 10ML SYR IVF SCH ×2 (08:08→21:22)
[2020-11-09 09:02] LABS: INTERNATIONAL NORMALIZED RATIO 1.57 (0.93-1.1); PROTHROMBIN TIME 16.7 Seconds (9.6-11.5)
[2020-11-09] MEDS: WARFARIN MODERAT DOSE PROTOCOL XX SCH (12:00)
[2020-11-09] MEDS: MULTIVITS,STRESS FORMULA 1 TABLET PO SCH (12:19)
[2020-11-09 14:35] VITALS: BP 116/77
[2020-11-09] MEDS ORDERED: WARFARIN 2.5 MG TABLET PO-COUM ONE (18:00)
[2020-11-09 18:40] VITALS: BP 116/81
[2020-11-09] MEDS: ACETAMINOPHEN 325 MG TABLET PO PRN (21:20)
[2020-11-10 02:41] VITALS: BP 125/88
[2020-11-10] MEDS: ACETAMINOPHEN 325 MG TABLET PO PRN ×2 (06:06→08:05)
[2020-11-10] MEDS: CARVEDILOL 12.5 MG TABLET PO SCH ×2 (06:06→17:10)
[2020-11-10] MEDS: METOLAZONE 5 MG TABLET PO SCH (06:06)
[2020-11-10] MEDS: INSULIN LISPRO 100 UNITS/ML, PEN SQ-INSULIN SCH ×4 (06:20→21:00)
[2020-11-10 06:30] LABS: INTERNATIONAL NORMALIZED RATIO 1.38 (0.93-1.1); PROTHROMBIN TIME 14.7 Seconds (9.6-11.5)
[2020-11-10 06:31] LABS: ALBUMIN 2.7 g/dL (3.4-5.0); ANION GAP 5 mmol/L (5-15); CALCIUM 8.2 mg/dL (8.5-10.1); CHLORIDE 103 mmol/L (98-107)
[2020-11-10 06:32] LABS: BASOPHILS % (AUTO) 1 % (0-1); EOSINOPHILS % (AUTO) 2 % (1-7); LYMPHOCYTES % (AUTO) 45 % (22-44); MEAN CORPUSCULAR HEMOGLOBIN 30.5 pg (27.5-34.5); MEAN CORPUSCULAR HGB CONC 32.8 g/dL (33.2-36.2); MEAN PLATELET VOLUME 8.3 fL (7.4-10.4); MONOCYTES % (AUTO) 8 % (2-9); NEUTROPHILS % (AUTO) 44 % (42-75); PLATELET COUNT 278 x10^3/uL (130-400); RED BLOOD COUNT 4.21 x10^6/uL (4.38-5.82); RED CELL DISTRIBUTION WIDTH 14.1 % (9.4-14.8)
[2020-11-10 06:33] LABS: MD NO
[2020-11-10 07:46] VITALS: BP 122/86
[2020-11-10] MEDS: FUROSEMIDE 40 MG/4 ML IV SCH ×2 (08:04→17:09)
[2020-11-10] MEDS: ZINC SULFATE 220 MG CAPSULE PO SCH (08:04)
[2020-11-10] MEDS: MULTIVITS,STRESS FORMULA 1 TABLET PO SCH (08:05)
[2020-11-10] MEDS: ISOSORBIDE MONONITRATE ER 60 MG TABLET PO SCH (08:05)
[2020-11-10] MEDS: LACTOBACILLUS CHEW TABLET PO SCH ×3 (08:05→20:57)
[2020-11-10] MEDS: CHOLECALCIFEROL 5,000u TAB PO SCH (08:06)
[2020-11-10] MEDS: SODIUM CHLORIDE FLUSH 10ML SYR IVF SCH ×2 (08:06→20:58)
[2020-11-10] MEDS: POTASSIUM CHLORIDE 20 MEQ TAB.ER.PRT PO SCH ×2 (08:06→20:57)
[2020-11-10] MEDS: ASCORBIC ACID 500 MG TABLET PO SCH ×2 (08:06→17:09)
[2020-11-10] MEDS: WARFARIN MODERAT DOSE PROTOCOL XX SCH (12:00)
[2020-11-10 13:09] VITALS: BP 132/87
[2020-11-10] MEDS ORDERED: WARFARIN 3 MG TABLET PO-COUM ONE (18:00)
[2020-11-10 20:02] VITALS: BP 117/76
[2020-11-10] MEDS: OXYcodone IR 5MG TABLET PO PRN (20:57)
[2020-11-11 01:50] VITALS: BP 128/92
[2020-11-11] MEDS: OXYcodone IR 5MG TABLET PO PRN ×2 (04:37→14:58)
[2020-11-11 04:47] LABS: BASOPHILS % (AUTO) 1 % (0-1); EOSINOPHILS % (AUTO) 3 % (1-7); LYMPHOCYTES % (AUTO) 50 % (22-44); MEAN CORPUSCULAR HEMOGLOBIN 30.8 pg (27.5-34.5); MEAN CORPUSCULAR HGB CONC 33.1 g/dL (33.2-36.2); MEAN PLATELET VOLUME 8.1 fL (7.4-10.4); MONOCYTES % (AUTO) 9 % (2-9); NEUTROPHILS % (AUTO) 37 % (42-75); PLATELET COUNT 281 x10^3/uL (130-400); RED BLOOD COUNT 4.17 x10^6/uL (4.38-5.82); RED CELL DISTRIBUTION WIDTH 13.8 % (9.4-14.8)
[2020-11-11 04:55] LABS: INTERNATIONAL NORMALIZED RATIO 1.44 (0.93-1.1); PROTHROMBIN TIME 15.3 Seconds (9.6-11.5)
[2020-11-11 04:57] LABS: ALBUMIN 2.6 g/dL (3.4-5.0); ANION GAP 3 mmol/L (5-15); CALCIUM 8.4 mg/dL (8.5-10.1); CHLORIDE 100 mmol/L (98-107)
[2020-11-11 05:58] LABS: MD SCAN
[2020-11-11 06:25] VITALS: BP 132/94
[2020-11-11] MEDS: METOLAZONE 5 MG TABLET PO SCH (06:26)
[2020-11-11] MEDS: CARVEDILOL 12.5 MG TABLET PO SCH ×2 (06:26→17:06)
[2020-11-11] MEDS: INSULIN LISPRO 100 UNITS/ML, PEN SQ-INSULIN SCH ×4 (07:00→21:12)
[2020-11-11 07:01] VITALS: BP 131/93
[2020-11-11] MEDS: FUROSEMIDE 40 MG/4 ML IV SCH (07:44)
[2020-11-11] MEDS: CHOLECALCIFEROL 5,000u TAB PO SCH (07:46)
[2020-11-11] MEDS: ZINC SULFATE 220 MG CAPSULE PO SCH (07:46)
[2020-11-11] MEDS: ASCORBIC ACID 500 MG TABLET PO SCH ×2 (07:46→17:05)
[2020-11-11] MEDS: LACTOBACILLUS CHEW TABLET PO SCH ×3 (07:46→21:10)
[2020-11-11] MEDS: POTASSIUM CHLORIDE 20 MEQ TAB.ER.PRT PO SCH ×3 (07:46→21:10)
[2020-11-11] MEDS: MULTIVITS,STRESS FORMULA 1 TABLET PO SCH (07:46)
[2020-11-11] MEDS: ISOSORBIDE MONONITRATE ER 60 MG TABLET PO SCH (07:46)
[2020-11-11] MEDS: SODIUM CHLORIDE FLUSH 10ML SYR IVF SCH ×2 (07:47→21:10)
[2020-11-11] MEDS: WARFARIN MODERAT DOSE PROTOCOL XX SCH (11:56)
[2020-11-11 14:22] VITALS: BP 121/83
[2020-11-11] MEDS: FUROSEMIDE 80 MG TABLET PO SCH (17:05)
[2020-11-11] MEDS ORDERED: WARFARIN 5 MG TABLET PO-COUM ONE (18:00)
[2020-11-11 20:30] VITALS: BP 115/80
[2020-11-12 00:38] VITALS: BP 110/76
[2020-11-12 04:45] LABS: INTERNATIONAL NORMALIZED RATIO 1.34 (0.93-1.1); PROTHROMBIN TIME 14.3 Seconds (9.6-11.5)
[2020-11-12 04:48] LABS: ALBUMIN 2.8 g/dL (3.4-5.0); ANION GAP 5 mmol/L (5-15); CALCIUM 8.7 mg/dL (8.5-10.1); CHLORIDE 102 mmol/L (98-107)
[2020-11-12 04:53] LABS: ALANINE AMINOTRANSFERASE 22 U/L (12-78); ALKALINE PHOSPHATASE 85 U/L (45-117); BILIRUBIN,TOTAL 0.5 mg/dL (0.2-1.0); CREATININE 1.35 mg/dL (0.7-1.3); TOTAL PROTEIN 7.2 g/dL (6.4-8.2)
[2020-11-12] MEDS: CARVEDILOL 12.5 MG TABLET PO SCH (06:41)
[2020-11-12] MEDS ORDERED: METOLAZONE 5 MG TABLET PO SCH (07:00)
[2020-11-12] MEDS: INSULIN LISPRO 100 UNITS/ML, PEN SQ-INSULIN SCH ×2 (07:00→11:55)
[2020-11-12 07:02] VITALS: BP 129/94
[2020-11-12] MEDS: FUROSEMIDE 80 MG TABLET PO SCH (07:39)
[2020-11-12] MEDS: MULTIVITS,STRESS FORMULA 1 TABLET PO SCH (07:39)
[2020-11-12] MEDS: LACTOBACILLUS CHEW TABLET PO SCH (07:39)
[2020-11-12] MEDS: POTASSIUM CHLORIDE 20 MEQ TAB.ER.PRT PO SCH (07:39)
[2020-11-12] MEDS: ASCORBIC ACID 500 MG TABLET PO SCH (07:40)
[2020-11-12] MEDS: ZINC SULFATE 220 MG CAPSULE PO SCH (07:40)
[2020-11-12] MEDS: CHOLECALCIFEROL 5,000u TAB PO SCH (07:40)
[2020-11-12] MEDS: ISOSORBIDE MONONITRATE ER 60 MG TABLET PO SCH (07:41)
[2020-11-12] MEDS: SODIUM CHLORIDE FLUSH 10ML SYR IVF SCH (07:41)
[2020-11-12] MEDS: OXYcodone IR 5MG TABLET PO PRN (07:43)
[2020-11-12] MEDS ORDERED: ZINC220C7 PO (11:09)
[2020-11-12] MEDS ORDERED: CARV12.52 PO (11:09)
[2020-11-12] MEDS ORDERED: CHOL500045 PO (11:09)
[2020-11-12] MEDS ORDERED: ISOS60TA36 PO (11:09)
[2020-11-12] MEDS ORDERED: METO5TAB5 PO (11:09)
[2020-11-12] MEDS ORDERED: MULT1TAB76 PO (11:09)
[2020-11-12] MEDS ORDERED: FURO80TA3 PO (11:09)
[2020-11-12] MEDS ORDERED: ACET325T26 PO (11:09)
[2020-11-12] MEDS ORDERED: INSU100I11 SQ-INSULIN (11:09)
[2020-11-12] MEDS ORDERED: ASCO500T9 PO (11:09)
[2020-11-12] MEDS ORDERED: POTA20TA6 PO (11:09)
[2020-11-12] MEDS ORDERED: OXYC5TAB98 PO (11:11)
[2020-11-12] MEDS ORDERED: WARF-36 PO (11:13)
[2020-11-12] MEDS: WARFARIN MODERAT DOSE PROTOCOL XX SCH (12:00)
[2020-11-12 14:30] VITALS: BP 93/60
[2020-11-12 15:52] VITALS: BP 108/66
== END 2020-11-12 16:10 | DRG 853 ==
LOC: ED 10:12 → EDIP 11:20 → 5SO 14:36 → ICU 20:07 → 4WST 10-25 06:41 → 4NE 10-25 17:50 → 4WST 10-25 17:51 → 4NE 10-25 18:18 → 4EST 10-31 11:32
PROVIDERS: ADMIT Hospitalist; ATTEND Internal Medicine
PROC: 0Y6P0Z0 Detachment at Right 1st Toe, Complete, Open Approach (ICD-10-PCS; 2020-10-23)
PROC: 02HV33Z Insertion of Infusion Device into Superior Vena Cava, Percutaneous Approach (ICD-10-PCS; principal; 2020-10-27)
PROC: B5181ZA Fluoroscopy of Superior Vena Cava using Low Osmolar Contrast, Guidance (ICD-10-PCS; 2020-10-27)
PROC: B548ZZA Ultrasonography of Superior Vena Cava, Guidance (ICD-10-PCS; 2020-10-27)
DX: A41.9 Sepsis, unspecified organism (principal); N17.0 Acute kidney failure with tubular necrosis; J96.01 Acute respiratory failure with hypoxia; I50.43 Acute on chronic combined systolic (congestive) and diastolic (congestive) heart failure; D68.69 Other thrombophilia; E87.2 Acidosis; L03.115 Cellulitis of right lower limb; I42.9 Cardiomyopathy, unspecified; I13.0 Hypertensive heart and chronic kidney disease with heart failure and stage 1 through stage 4 chronic kidney disease, or unspecified chronic kidney disease; L03.116 Cellulitis of left lower limb; M86.8X7 Other osteomyelitis, ankle and foot; E11.22 Type 2 diabetes mellitus with diabetic chronic kidney disease; E11.42 Type 2 diabetes mellitus with diabetic polyneuropathy; E11.621 Type 2 diabetes mellitus with foot ulcer; E11.65 Type 2 diabetes mellitus with hyperglycemia; E11.69 Type 2 diabetes mellitus with other specified complication; E87.6 Hypokalemia; Z20.822 Contact with and (suspected) exposure to COVID-19; T45.515A Adverse effect of anticoagulants, initial encounter; N18.9 Chronic kidney disease, unspecified; J98.01 Acute bronchospasm; I51.3 Intracardiac thrombosis, not elsewhere classified; E87.8 Other disorders of electrolyte and fluid balance, not elsewhere classified; E88.09 Other disorders of plasma-protein metabolism, not elsewhere classified; F10.10 Alcohol abuse, uncomplicated; I35.1 Nonrheumatic aortic (valve) insufficiency; I37.1 Nonrheumatic pulmonary valve insufficiency; I27.20 Pulmonary hypertension, unspecified; L97.509 Non-pressure chronic ulcer of other part of unspecified foot with unspecified severity; Z89.429 Acquired absence of other toe(s), unspecified side; Z89.411 Acquired absence of right great toe; Z87.891 Personal history of nicotine dependence; Z83.3 Family history of diabetes mellitus; Z79.4 Long term (current) use of insulin; Y92.89 Other specified places as the place of occurrence of the external cause
CPT/HCPCS: 36415; 36600; 73630; 74018; 84145; 87806; 99291; S0020; 36573; 71045; 76770; 80048; 80053; 80069; 80074; 80202; 81001; 82306; 82330; 82436; 82565; 82570; 82803; 82947; 82962; 83036; 83605; 83735; 83880; 83970; 84100; 84132; 84133; 84295; 84300; 84484; 84550; 85014; 85025; 85520; 85610; 87040; 87070; 87075; 87077; 87081; 87147; 87176; 87186; 87205; 87635; 93005; 93306; 93356; 93926; 94002; 94003; G0378; J0290; J0690; J0696; J1100; J1644; J1940; J2250; J2405; J2543; J2704; J3010; J3370; J3480; P9047; Q9957; C1751; C8924; G0475; J0330; J1815; J2370; J3475; J7030; J7040; J7050; U0003